=== PATIENT | female | born 1975 | race Caucasian/White ===

== ENCOUNTER 2017-11-15 13:53 | Emergency (ER) | payer BC ==
[~2017-11-15] VITALS: Ht 175.3 cm; Wt 79.8 kg
[~2017-11-15 13:53] MED LIST: ADDERALL 30 MG30 MG PO; ADDERALL XR 3030 MG PO; BENTYL10 MG PO; CIPRO500 MG PO; FLAGYL250 MG PO; NAPROXEN500 M1 PO; PANTOPRAZOLE SO40 MG PO; PHENERGAN SUPP25 MG RC; ZOFRAN ODT4 MG PO
[2017-11-15] MEDS ORDERED: MORPHINE SULFATE 4 MG/ML SYR IV STA (13:56)
[2017-11-15] MEDS ORDERED: SODIUM CHLORIDE 0.9% 1000ML 1,000 ML IV STA (13:56)
--- OUTSIDE RECORDS SUMMARY | 2017-11-15 13:57 | XMS REPORT ---
Author Author [facility] Address Unknown Phone Unavailable Care Team Providers [employer] Name Role Phone TATYANA RAM Unavailable Unavailable SADI MUSTAFA Unavailable Unavailable Problems This patient has no known problems. Allergies, Adverse Reactions, Alerts This patient has no known allergies or adverse reactions. Medications This patient has no known medications. Results Test Description Test Time Test Comments Text Results Atomic Results Result Comments CHEST SINGLE (PORTABLE) [place] [address] Patient Name: EUN SINGH MR #: [id number] : 1975 Age/Sex: 41/F Req #: [id number] [facility] Physician: TATYANA RAM MD Ordered by: OTIS VARGAS, SVETLANA VARGAS Report #: [id number] Location: [facility] Room/Bed: [place] [address] Procedure: [id number] DX/CHEST SINGLE (PORTABLE) Exam Date: Exam Time: REPORT STATUS: Signed PROCEDURE: CHEST SINGLE (PORTABLE) COMPARISON: None. INDICATIONS: DIVERTICULITIS/GASTRITIS FINDINGS: LUNGS: No consolidations or edema. PLEURA: No effusions or pneumothorax. HEART T MEDIASTINUM: The heart is within normal size-limits. BONES T SOFT TISSUES: No acute findings. CONCLUSION: No acute thoracic abnormality. Dictated by: Rosenda Glass M.D. on 09/24/2017 at 12:02 Electronically approved by: Rosenda Glass M.D. on 09/24/2017 at 12:02 Dictated By: ROSENDA GLASS MD 1202 Transcribed By: VENTURA on 09/24/17 1202 COPY TO : SVETLANA BERG CT ABDOMEN/PELVIS W [place] [address] Patient Name: EUN SINGH MR #: [id number] : 1975 Age/Sex: 41/F Req #: [id number] Adm Physician: TATYANA RAM MD Ordered by: SVETLANA BERG MD, MD Report #: [id number] Location: [facility] Room/Bed: [place] [address] Procedure: [id number] CT/CT ABDOMEN/PELVIS W Exam Date: 09/24/17 Exam Time: 1230 REPORT STATUS: Signed PROCEDURE: CT ABDOMEN AND PELVIS WITH CONTRAST TECHNIQUE: The abdomen and pelvis were scanned utilizing a multidetector helical scanner from the diaphragm to the lesser trochanter after the IV administration of 100 cc of Isovue 370 and the oral administration of water. Coronal and sagittal multiplanar reformations were obtained. COMPARISON: None. INDICATIONS: GASTRITIS FLARE UP, FEVER FINDINGS: LOWER THORAX: Subsegmental atelectasis in the left lower lobe. Pectus excavatum. No pleural or pericardial effusion.. HEPATOBILIARY: Trace intrahepatic biliary ductal dilatation status post cholecystectomy. No focal hepatic lesion. SPLEEN: No splenomegaly. Small splenule adjacent to the lower pole. PANCREAS: No focal masses or ductal dilatation. ADRENALS: No adrenal nodules. KIDNEYS/URETERS: No hydronephrosis, stones, or solid mass lesions. PELVIC ORGANS/BLADDER: The urinary bladder is unremarkable. The uterus is anteflexed and appears normal. No adnexal mass. PERITONEUM / RETROPERITONEUM: Trace free pelvic fluid, average internal attenuation 5-10 Hounsfield units. No pneumoperitoneum. LYMPH NODES: No pelvic sidewall, retroperitoneal, or mesenteric lymphadenopathy. VESSELS: The abdominal aorta, major branch vessels, and iliac arterial systems are patent, without aneurysmal dilatation. Hepatic arterial anatomy appears conventional. Portal vein, splenic vein, and central superior mesenteric vein are patent. GI TRACT: The large bowel shows no evidence of distention or wall thickening. Gas and fecal material are noted throughout. The appendix has likely been removed with metallic clips noted along the cecum. There is no small bowel dilatation to suggest obstruction. Opacification of a loop of small bowel in the right lower quadrant is likely related to antacid or other metallic salt containing medication ingestion. BONES AND SOFT TISSUES: No focal soft tissue abnormalities. No osseous destructive lesions. Bone island in the left femoral head. IMPRESSION: No acute intra- abdominal or pelvic CT abnormalities. Trace free pelvic fluid is likely physiologic in a female patient of this age. Dictated by: Rosenda Glass M.D. on 09/24/2017 at 13:23 Electronically approved by: Rosenda Glass M.D. on 09/24/2017 at 13:23 Dictated By: ROSENDA GLASS MD 1323 Transcribed By: VENTRUA on 09/24/17 1323 COPY TO: SVETLANA BERG ANKLE 3+ VIEWS LEFT [place] [address] Patient Name: EUN SINGH MR #: [id number] : 1975 Age/Sex: 41/F Req #: [id number] Adm Physician: Ordered by: SADI MUSTAFA MD Report #: [id number] Location: ER Room/Bed: Procedure: [id number] DX/ANKLE 3+ VIEWS LEFT Exam Date: 08/09/17 Exam Time: 1235 REPORT STATUS: Signed Exam: Left ankle 3 views History: Ankle pain Comparison: None. Findings: No fracture or malalignment. Joint spaces preserved. Joint effusion and soft tissue swelling. Impression: Ankle joint effusion and swelling. No fracture. Signed by: Dr. Aleisha Anaya M.D. on 08/09/2017 1:02 PM Dictated By: ALEISHA ANAYA MD 1302 Transcribed By: BRAYAN on 08/09/17 1302 COPY TO: SADI MUSTAFA MD
[2017-11-15] MEDS ORDERED: LIDOCAINE VISC 2% SOLN 15 ML UDC PO ONE (14:00)
[2017-11-15] MEDS ORDERED: BELLADONNA ALK/PHENOBARBITAL 5 ML UDC PO ONE (14:00)
[2017-11-15] MEDS ORDERED: DIATRIZOATE MEGL/DIATRIZOA SOD 30 ML BTL PO ONE (14:09)
[2017-11-15] MEDS ORDERED: ONDANSETRON HCL INJ 2 MG/ML VIAL IV ONE ×2 (14:30→17:00)
[2017-11-15] MEDS ORDERED: MAGNESIUM/ALUMINUM/SIMETHICONE 30 ML UDC PO ONE (14:30)
[2017-11-15] MEDS ORDERED: MORPHINE SULFATE 2 MG/ML SYR ONE (14:44)
[2017-11-15 14:55] LABS: BASOPHILS % 0.1 % (0.0-1.0); HEMATOCRIT 43.1 % (34.2-44.1); HEMOGLOBIN 15.1 g/dL (12.0-16.0); LYMPHOCYTES # (AUTO) 0.3 (1.0-3.2); LYMPHOCYTES % 1.7 % (18.0-39.1); MEAN CORPUSCULAR HEMOGLOBIN 33.6 pg (28-32); MONOCYTES # (AUTO) 0.3 (0.2-0.8); MONOCYTES % 1.9 % (4.4-11.3); NEUTROPHILS # (AUTO) 14.8 (2.1-6.9); NEUTROPHILS % 95.8 % (38.7-80.0); PLATELET COUNT 286 x10e3/uL (140-360); RED BLOOD COUNT 4.49 x10e6/uL (3.6-5.1); RED CELL DISTRIBUTION WIDTH 12.2 % (11.7-14.4)
[2017-11-15 14:56] LABS: BILIRUBIN,URINE NEGATIVE (NEGATIVE); CLARITY,URINE HAZY (CLEAR); COLOR,URINE YELLOW (YELLOW); KETONES,URINE 3+ (NEGATIVE); LEUKOCYTE ESTERASE ,URINE NEGATIVE (NEGATIVE); NITRITE,URINE NEGATIVE (NEGATIVE); PROTEIN,URINE DIPSTICK NEGATIVE (NEGATIVE); URINE UROBILINOGEN 0.2 mg/dL (0.2 - 1)
[2017-11-15 15:11] LABS: PREGNANCY TEST, URINE NEGATIVE (NEGATIVE)
[2017-11-15 15:15] LABS: ALANINE AMINOTRANSFERASE 18 IU/L (0-55); ALBUMIN 4.3 g/dL (3.5-5.0); ALBUMIN/GLOBULIN RATIO 1.3 (0.8-2.0); ALKALINE PHOSPHATASE 72 IU/L (40-150); AMYLASE 42 U/L (25-125); ANION GAP 14.3 mmol/L (8-16); BLOOD UREA NITROGEN 18 mg/dL (7-26); BUN/CREATININE RATIO 23 (6-25); CALCIUM 9.1 mg/dL (8.4-10.2); CARBON DIOXIDE 22 mmol/L (22-29); CHLORIDE 107 mmol/L (98-107); CREATININE, SERUM 0.79 mg/dL (0.57-1.11); EPITHELIAL CELLS,URINE MODERATE /LPF; EST GLOMERULAR FILTRATION RATE > 60 ML/MIN (60-); GLUCOSE 171 mg/dL (74-118); LIPASE 15 U/L (8-78); POTASSIUM 4.3 mmol/L (3.5-5.1); SODIUM 139 mmol/L (136-145); WBC,URINE (MAN) 0-5 /HPF (0-5)
[2017-11-15 15:25] LABS: TROPONIN I < 0.001 ng/mL (0-0.300)
[2017-11-15] MEDS ORDERED: SODIUM CHLORIDE 0.9% 50ML 50 ML ONE (15:59)
[2017-11-15] MEDS ORDERED: IOPAMIDOL 370 MG/ML 200 ML INFUS..BTL INJ ONE (15:59)
[2017-11-15 16:15] LABS: CREATINE KINASE 80 IU/L (29-168)
[2017-11-15] MEDS ORDERED: HYDROMORPHONE 2MG/ML INJ IV ONE (17:00)
--- NOTE | 2017-11-15 17:21 | Diagnostic Imaging Report ---
EXAM: CT Abdomen and Pelvis WITH contrast INDICATION: Abdominal pain COMPARISON: None. TECHNIQUE: Abdomen and pelvis were scanned utilizing a multidetector helical scanner from the lung base to the pubic symphysis after administration of contrast. Coronal and sagittal reformations were obtained. Protocol: General survey IV CONTRAST: 100 mL of Isovue 370 ORAL CONTRAST: Gastroview COMPLICATIONS: None RADIATION DOSE: Total Exam DLP: 431.5 mGy*cm. CTDIvol has been reviewed. It is below the limits set by the Radiation Protocol Committee (RPC). FINDINGS: LINES: None. Lower thorax: No parenchymal abnormality. No pneumothorax. No pleural effusion. Liver: No focal mass. No hepatomegaly. Normal parenchyma. The hepatic and portal veins are patent. Gallbladder: Cholecystectomy. Biliary tree: No intrahepatic duct dilation. No extrahepatic duct dilation. Spleen: No splenomegaly. No focal mass. Pancreas: Normal parenchymal enhancement. No focal mass. Normal pancreatic duct. No peripancreatic inflammatory changes. Kidneys: No obstructing calculi. No hydronephrosis. No solid enhancing mass. No cysts. No perinephric soft tissue inflammatory changes. Adrenal glands: No adrenal nodules.. Bladder: Normal urinary bladder. Pelvic organs: Normal uterus and ovaries. GI: No bowel wall thickening. No air-fluid levels. The stomach and small bowel are normal. The colon is normal. Appendectomy. A moderate amount of retained feces limits intraluminal evaluation of the colon. Peritoneum/retroperitoneum: No pneumoperitoneum. No ascites. No drainable fluid collection. Lymph nodes: No lymphadenopathy. . Vessels: The abdominal aorta and iliac vessels are patent. The celiac, superior mesenteric, and inferior mesenteric arteries are patent. Single bilateral renal arteries are patent. . Bones: No focal abnormality. . Soft tissues: No focal abnormality. IMPRESSION: No acute abnormality of the abdomen and pelvis. Signed by: Dr. Scooter Pendleton M.D. on 11/15/2017 5:17 PM
[2017-11-15 17:41] LABS: LYMPHOCYTES % (MANUAL) 5 % (19-48); MONOCYTES % (MANUAL) 3 % (3.4-9.0); NEUTROPHILS % (MANUAL) 92 % (40-74)
[2017-11-15 17:42] LABS: PLATELET ESTIMATE ADEQUATE; PLATELET MORPHOLOGY COMMENT NORMAL; RBC MORPHOLOGY COMMENT NORMAL
[2017-11-15 17:52] VITALS: BP 156/89
== END 2017-11-15 18:40 | disposition home or self-care (01) ==
LOC: ER 13:53
DX: R10.13 Epigastric pain (principal); K29.00 Acute gastritis without bleeding
CPT/HCPCS: 36415; 74177; 80053; 81001; 81025; 82150; 82550; 82553; 83690; 84484; 84702; 85025; 87086; 93005; 99284; J1170; J2270; J2405; J7030; Q9967

== ENCOUNTER 2019-01-14 12:23 | Emergency (ER) | payer BC ==
[~2019-01-14] VITALS: Ht 175.3 cm; Wt 79.8 kg
--- OUTSIDE RECORDS SUMMARY | 2019-01-14 12:27 | XMS REPORT | Continuity of Care Document ---
Author Author [facility] Interface Address Unknown Phone Unavailable Problems Problem Status Onset Date Classification Date Reported Comments Source Abdominal pain Active Problem 11/16/2017 [facility] Colitis Active Problem 11/16/2017 [facility] Gastritis Active Problem 11/16/2017 [facility] Left ankle sprain Active Problem 11/16/2017 [facility] Vomiting Active Problem 11/16/2017 [facility] Medications Medication Details Route Status Patient Instructions Ordering Provider Order Date Source Pantoprazole Sodium (Protonix) 40 Mg Tablet. Twice A Day Active [place] 03/19/2017 [facility] Ciprofloxacin Hcl (Cipro) 500 Mg Tablet, 500 Mg Oral Daily Active 03/19/2017 [facility] Dicyclomine Hcl (Bentyl) 10 Mg Capsule, 10 Mg Oral Three Times A Day Active [place] 03/19/2017 [facility] Metronidazole (Flagyl) 250 Mg Tablet, 500 Mg Oral Every 8 Hours Active 03/19/2017 [facility] Promethazine Hcl (Phenergan Supp*) 25 Mg Supp, 1 Supp Rectal Every 8 Hours as needed for Vomiting Active 03/19/2017 [facility] Amphet Asp/Amphet/D-Amphet (Adderall Xr 30 Mg Capsule) 30 Mg Cap.er.24h, 30 Mg Oral Twice A Day Active 03/16/2017 [facility] Naproxen 500 Mg Tablet., 500 Mg Oral Twice A Day Active 03/16/2017 [facility] Amphet Asp/Amphet/D-Amphet (Adderall 30 Mg Tablet) 30 Mg Tablet Daily Active [facility] Ondansetron (Zofran Odt) 4 Mg Tab.rapdis Every 6 Hours as needed for Vomiting Active [facility] Allergies, Adverse Reactions, Alerts Substance Category Reaction Severity Reaction type Status Date Reported Comments Source STRAWBERRIES RED SPOTS Mild Allergy to Substance Active 11/16/2013 [facility] Immunizations Immunization Date Given Site Status Last Updated Comments Source Results Order Name Results Value Reference Range Date Interpretation Comments Source Automated blood basophil count (count/volume) Automated blood basophil count (count/volume) 0.0 0.0 - 0.1 11/15/2017 [facility] Automated blood basophil count as percentage of total leukocytes Automated blood basophil count as percentage of total leukocytes 0.1 0.0 - 1.0 11/15/2017 [facility] Automated blood eosinophil count Automated blood eosinophil count 0.0 0.0 - 0.4 11/15/2017 [facility] Automated blood eosinophil count as percentage of total leukocytes Automated blood eosinophil count as percentage of total leukocytes 0.0 0.0 - 6.0 11/15/2017 [facility] Automated blood hematocrit (volume fraction) Automated blood hematocrit (volume fraction) 43.1 34.2 - 44.1 11/15/2017 [facility] Automated blood lymphocyte count as percentage ot total leukocytes Automated blood lymphocyte count as percentage ot total leukocytes 1.7 18.0 - 39.1 11/15/2017 [facility] Automated blood monocyte count as percentage of total leukocytes Automated blood monocyte count as percentage of total leukocytes 1.9 4.4 - 11.3 11/15/2017 [facility] Automated blood neutrophil count Automated blood neutrophil count 14.8 2.1 - 6.9 11/15/2017 [facility] Automated blood platelet count (count/volume) Automated blood platelet count (count/volume) 286 140 - 360 11/15/2017 [facility] Automated blood segmented neutrophil count as percentage of total leukocytes Automated blood segmented neutrophil count as percentage of total leukocytes 95.8 38.7 - 80.0 11/15/2017 [facility] Automated erythrocyte mean corpuscular hemoglobin (mass per erythrocyte) Automated erythrocyte mean corpuscular hemoglobin (mass per erythrocyte) 33.6 28 - 32 11/15/2017 [facility] Automated erythrocyte mean corpuscular hemoglobin concentration measurement (mass/volume) Automated erythrocyte mean corpuscular hemoglobin concentration measurement (mass/volume) 35.0 31 - 35 11/15/2017 [facility] Automated erythrocyte mean corpuscular volume Automated erythrocyte mean corpuscular volume 96.0 81 - 99 11/15/2017 [facility] Automated urine sediment leukocyte count by microscopy (number/high power field) Automated urine sediment leukocyte count by microscopy (number/high power field) null 0 - 5 11/15/2017 [facility] Bacteria detection in urine sediment by light microscopy Bacteria detection in urine sediment by light microscopy NONE NONE 11/15/2017 [facility] Blood erythrocytes automated count (number/volume) Blood erythrocytes automated count (number/volume) 4.49 3.6 - 5.1 11/15/2017 [facility] Blood hemoglobin measurement (moles/volume) Blood hemoglobin measurement (moles/volume) 15.1 12.0 - 16.0 11/15/2017 [facility] Blood leukocytes automated count (number/volume) Blood leukocytes automated count (number/volume) 15.49 4.8 - 10.8 11/15/2017 [facility] Blood lymphocytes count (number/volume) Blood lymphocytes count (number/volume) 0.3 1.0 - 3.2 11/15/2017 [facility] Blood monocytes automated count (number/volume) Blood monocytes automated count (number/volume) 0.3 0.2 - 0.8 11/15/2017 [facility] Blood platelets count by estimate (number/volume) Blood platelets count by estimate (number/volume) ADEQUATE 11/15/2017 [facility] Epithelial cells detection in urine sediment by light microscopy Epithelial cells detection in urine sediment by light microscopy MODERATE NONE 11/15/2017 [facility] Erythrocytes detection in urine sediment by light microscopy Erythrocytes detection in urine sediment by light microscopy NONE 0 - 5 11/15/2017 [facility] Estimated glomerular filtration rate (GFR) determination Estimated glomerular filtration rate (GFR) determination null 60 11/15/2017 [facility] Glucose measurement Glucose measurement 171 74 - 118 11/15/2017 [facility] Manual blood lymphocytes/100 leukocytes Manual blood lymphocytes/100 leukocytes 5 19 - 48 11/15/2017 [facility] Manual blood monocytes/100 leukocytes Manual blood monocytes/100 leukocytes 3 3.4 - 9.0 11/15/2017 [facility] Manual blood neutrophils/100 leukocytes Manual blood neutrophils/100 leukocytes 92 40 - 74 11/15/2017 [facility] Plasma globulin measurement (mass/volume) Plasma globulin measurement (mass/volume) 3.2 2.3 - 3.5 11/15/2017 [facility] Platelet morphology Platelet morphology NORMAL 11/15/2017 [facility] RBC morphology RBC morphology NORMAL 11/15/2017 [facility] Serum or plasma alanine aminotransferase measurement (enzymatic activity/volume) Serum or plasma alanine aminotransferase measurement (enzymatic activity/volume) 18 0 - 55 11/15/2017 [facility] Serum or plasma albumin measurement (mass/volume) Serum or plasma albumin measurement (mass/volume) 4.3 3.5 - 5.0 11/15/2017 [facility] Serum or plasma albumin/globulin mass ratio Serum or plasma albumin/globulin mass ratio 1.3 0.8 - 2.0 11/15/2017 [facility] Serum or plasma alkaline phosphatase measurement (enzymatic activity/volume) Serum or plasma alkaline phosphatase measurement (enzymatic activity/volume) 72 40 - 150 11/15/2017 [facility] Serum or plasma amylase measurement (enzymatic activity/volume) Serum or plasma amylase measurement (enzymatic activity/volume) 42 25 - 125 11/15/2017 [facility] Serum or plasma anion gap Serum or plasma anion gap 14.3 8 - 16 11/15/2017 [facility] Serum or plasma calcium measurement (mass/volume) Serum or plasma calcium measurement (mass/volume) 9.1 8.4 - 10.2 11/15/2017 [facility] Serum or plasma carbon dioxide, total measurement (moles/volume) Serum or plasma carbon dioxide, total measurement (moles/volume) 22 22 - 29 11/15/2017 [facility] Serum or plasma chloride measurement (moles/volume) Serum or plasma chloride measurement (moles/volume) 107 98 - 107 11/15/2017 [facility] Serum or plasma choriogonadotropin ( test) detection Serum or plasma choriogonadotropin ( test) detection NEGATIVE NEGATIVE 11/15/2017 [facility] Serum or plasma creatine kinase MB measurement (mass/volume) Serum or plasma creatine kinase MB measurement (mass/volume) 2.20 0.00 - 5.00 11/15/2017 [facility] Serum or plasma creatine kinase measurement (enzymatic activity/volume) Serum or plasma creatine kinase measurement (enzymatic activity/volume) 80 29 - 168 11/15/2017 [facility] Serum or plasma creatinine measurement (mass/volume) Serum or plasma creatinine measurement (mass/volume) 0.79 0.57 - 1.11 11/15/2017 [facility] Serum or plasma lipase measurement (enzymatic activity/volume) Serum or plasma lipase measurement (enzymatic activity/volume) 15 8 - 78 11/15/2017 [facility] Serum or plasma potassium measurement (moles/volume) Serum or plasma potassium measurement (moles/volume) 4.3 3.5 - 5.1 11/15/2017 [facility] Serum or plasma protein measurement (mass/volume) Serum or plasma protein measurement (mass/volume) 7.5 6.5 - 8.1 11/15/2017 [facility] Serum or plasma sodium measurement (moles/volume) Serum or plasma sodium measurement (moles/volume) 139 136 - 145 11/15/2017 [facility] Serum or plasma total bilirubin measurement (mass/volume) Serum or plasma total bilirubin measurement (mass/volume) 1.0 0.2 - 1.2 11/15/2017 [facility] Serum or plasma troponin i.cardiac measurement by detection limit <=0.01 NG/ml (mass/volume) Serum or plasma troponin i.cardiac measurement by detection limit <=0.01 NG/ml (mass/volume) null 0 - 0.300 11/15/2017 [facility] Serum or plasma urea nitrogen measurement (mass/volume) Serum or plasma urea nitrogen measurement (mass/volume) 18 7 - 26 11/15/2017 [facility] Serum or plasma urea nitrogen/creatinine mass ratio Serum or plasma urea nitrogen/creatinine mass ratio 23 6 - 25 11/15/2017 [facility] Specific gravity of Urine by Test strip Specific gravity of Urine by Test strip 1.025 1.010 - 1.025 11/15/2017 [facility] Urine clarity Urine clarity HAZY CLEAR 11/15/2017 [facility] Urine color determination Urine color determination YELLOW YELLOW 11/15/2017 [facility] Urine erythrocytes detection Urine erythrocytes detection 3+ NEGATIVE 11/15/2017 [facility] Urine glucose detection Urine glucose detection NEGATIVE NEGATIVE 11/15/2017 [facility] Urine human chorionic gonadotropin (hCG) detection Urine human chorionic gonadotropin (hCG) detection NEGATIVE NEGATIVE 11/15/2017 [facility] Urine ketones detection by automated test strip Urine ketones detection by automated test strip 3+ NEGATIVE 11/15/2017 [facility] Urine leukocyte esterase detection by dipstick Urine leukocyte esterase detection by dipstick NEGATIVE NEGATIVE 11/15/2017 [facility] Urine nitrite detection Urine nitrite detection NEGATIVE NEGATIVE 11/15/2017 [facility] Urine pH measurement by automated test strip Urine pH measurement by automated test strip 6 5 - 7 11/15/2017 [facility] Urine protein measurement by test strip (mass/volume) Urine protein measurement by test strip (mass/volume) NEGATIVE NEGATIVE 11/15/2017 [facility] Urine total bilirubin measurement (mass/volume) Urine total bilirubin measurement (mass/volume) NEGATIVE NEGATIVE 11/15/2017 [facility] Urine urobilinogen measurement by test strip (mass/volume) Urine urobilinogen measurement by test strip (mass/volume) 0.2 0.2 - 1 11/15/2017 [facility] Red Cell Distribution Width 12.2 11.7 - 14.4 11/15/2017 [facility] IM GRANULOCYTES % 0.5 0.0 - 1.0 11/15/2017 [facility] Absolute Immature Granulocyte (auto 0.07 0 - 0.1 11/15/2017 [facility] Differential Total Cells Counted 100 11/15/2017 [facility] Aspartate Amino Transf (AST/SGOT) 16 5 - 34 11/15/2017 [facility] Activated partial thromboplastin time (aPTT) in platelet poor plasma bycoagulation assay Activated partial thromboplastin time (aPTT) in platelet poor plasma bycoagulation assay 27.0 23.8 - 35.5 09/24/2017 [facility] INR in Platelet poor plasma by Coagulation assay INR in Platelet poor plasma by Coagulation assay 0.90 09/24/2017 [facility] Prothrombin time (PT) in platelet poor plasma by coagulation assay Prothrombin time (PT) in platelet poor plasma by coagulation assay 10.2 11.9 - 14.5 09/24/2017 [facility] Serum or plasma acetaminophen measurement by screening method (mass/volume) Serum or plasma acetaminophen measurement by screening method (mass/volume) null 10 - 30 09/24/2017 [facility] Serum or plasma magnesium measurement (mass/volume) Serum or plasma magnesium measurement (mass/volume) 2.1 1.3 - 2.1 09/24/2017 [facility] Serum or plasma salicylates measurement (mass/volume) Serum or plasma salicylates measurement (mass/volume) null 0 - 30 09/24/2017 [facility] Serum or plasma thyrotropin measurement by detection limit <=0.005 miu/l (units/volume) Serum or plasma thyrotropin measurement by detection limit <=0.005 miu/l (units/volume) 0.860 0.350 - 4.940 09/24/2017 [facility] B-Type Natriuretic Peptide 88.7 0 - 100 09/24/2017 [facility] Amorphous sediment detection in urine sediment by light microscopy Amorphous sediment detection in urine sediment by light microscopy MODERATE FEW 09/24/2017 [facility] Clostridium difficile A and B toxin assay Clostridium difficile A and B toxin assay NEGATIVE NEGATIVE 03/17/2017 [facility] Stool calprotectin measurement (mass/mass) Stool calprotectin measurement (mass/mass) null 0 - 120 03/17/2017 [facility] Stool lactoferrin detection Stool lactoferrin detection NEGATIVE NEGATIVE 03/17/2017 [facility] Bacterial blood culture Bacterial blood culture Organism: STAPHYLOCOCCUS SP COAG NEG 03/16/2017 [facility] Blood culture Blood culture Growth detected. Culture workup ordered. 03/16/2017 [facility] Vital Signs Vital Sign Value Date Comments Source Encounters Location Location Details Encounter Type Encounter Number Reason For Visit Attending Provider ADM Date DC Date Status Source Discharged Inpatient [id number] TATYANA RAM MD 03/16/2017 03/19/2017 [facility] Departed Emergency Room [id number] SADI MUSTAFA MD 08/09/2017 08/09/2017 [facility] Discharged Inpatient [id number] TATYANA RAM MD 09/28/2017 09/28/2017 [facility] Departed Emergency Room [id number] SADI MUSTAFA MD 11/15/2017 11/15/2017 [facility] Procedures Procedure Code Date Perfomer Comments Source Computed tomography of abdomen and pelvis with contrast [id number] 11/15/2017 [facility] DILATION OF STOMACH, PYLORUS, ENDO [id number] 09/27/2017 [facility] EXCISION OF STOMACH, PYLORUS, ENDO, DIAGN [id number] 09/27/2017 [facility] EXCISION OF STOMACH, ENDO, DIAGN [id number] 09/27/2017 [facility] Computed tomography of abdomen and pelvis with contrast [id number] 09/24/2017 [facility] APPLICATION LOWER LEG SPLINT [id number] 08/09/2017 [place] [facility] EXCISION OF STOMACH, ENDO, DIAGN [id number] 03/17/2017 [facility] EXCISION OF RECTUM, ENDO, DIAGN [id number] 03/17/2017 [facility] EXCISION OF DESCENDING COLON, ENDO, DIAGN [id number] 03/17/2017 [facility]
[2019-01-14] MEDS ORDERED: ONDANSETRON HCL INJ 2MG/ML 2ML 2 MG/ML VIAL IV STA ×2 (12:58→15:52)
[2019-01-14] MEDS ORDERED: SODIUM CHLORIDE 0.9% 1000ML 1,000 ML IV STA (12:58)
[2019-01-14] MEDS ORDERED: DIPHENHYDRAMINE HCL INJ 50 MG/ML VIAL IV ONE ×2 (13:00→17:00)
[2019-01-14] MEDS ORDERED: METOCLOPRAMIDE HCL 10 MG/2ML VIAL IV ONE ×2 (13:00→17:00)
[2019-01-14] MEDS ORDERED: PANTOPRAZOLE 40 MG 10ML VIAL IV NR (13:15)
[2019-01-14 13:21] LABS: BASOPHILS % 0.3 % (0.0-1.0); HEMATOCRIT 44.7 % (34.2-44.1); HEMOGLOBIN 15.5 g/dL (12.0-16.0); LYMPHOCYTES # (AUTO) 0.8 (1.0-3.2); LYMPHOCYTES % 6.9 % (18.0-39.1); MEAN CORPUSCULAR HEMOGLOBIN 33.3 pg (28-32); MEAN CORPUSCULAR HGB CONC 34.7 g/dL (31-35); MEAN CORPUSCULAR VOLUME 96.1 fL (81-99); MONOCYTES # (AUTO) 0.2 (0.2-0.8); MONOCYTES % 1.9 % (4.4-11.3); NEUTROPHILS # (AUTO) 10.7 (2.1-6.9); NEUTROPHILS % 90.5 % (38.7-80.0); PLATELET COUNT 317 x10e3/uL (140-360); RED BLOOD COUNT 4.65 x10e6/uL (3.6-5.1); RED CELL DISTRIBUTION WIDTH 12.9 % (11.7-14.4)
[2019-01-14 13:34] LABS: INR 0.9; PARTIAL THROMBOPLASTIN TIME 24.1 seconds (23.8-35.5); PROTHROMBIN TIME 12.6 seconds (11.9-14.5)
[2019-01-14 13:44] LABS: ALANINE AMINOTRANSFERASE 10 IU/L (0-55); ALBUMIN 4.1 g/dL (3.5-5.0); ALBUMIN/GLOBULIN RATIO 1.1 (0.8-2.0); ALKALINE PHOSPHATASE 80 IU/L (40-150); AMYLASE 55 U/L (25-125); BLOOD UREA NITROGEN 14 mg/dL (7-26); BUN/CREATININE RATIO 18 (6-25); CALCIUM 9.7 mg/dL (8.4-10.2); CARBON DIOXIDE 21 mmol/L (22-29); CHLORIDE 107 mmol/L (98-107); CREATINE KINASE 86 IU/L (29-168); CREATININE, SERUM 0.79 mg/dL (0.57-1.11); EST GLOMERULAR FILTRATION RATE > 60 ML/MIN (60-); GLUCOSE 156 mg/dL (74-118); LIPASE 14 U/L (8-78); MAGNESIUM 2.2 MG/DL (1.3-2.1); SODIUM 137 mmol/L (136-145)
[2019-01-14 14:03] LABS: AMPHETAMINES SCREEN,URINE POSITIVE (NEGATIVE); BENZODIAZEPINES SCREEN,URINE NEGATIVE (NEGATIVE); PHENCYCLIDINE SCREEN,URINE NEGATIVE (NEGATIVE)
[2019-01-14 14:04] LABS: BILIRUBIN,URINE NEGATIVE (NEGATIVE); CLARITY,URINE SL CLOUDY (CLEAR); COLOR,URINE YELLOW (YELLOW); KETONES,URINE 1+ (NEGATIVE); LEUKOCYTE ESTERASE ,URINE NEGATIVE (NEGATIVE); NITRITE,URINE NEGATIVE (NEGATIVE); PROTEIN,URINE DIPSTICK TRACE (NEGATIVE); URINE UROBILINOGEN 0.2 mg/dL (0.2 - 1)
[2019-01-14 14:05] LABS: ACETAMINOPHEN < 3 ug/mL (10-30)
[2019-01-14 14:09] LABS: AMORPHOUS SEDIMENT,URINE MODERATE (FEW); BACTERIA,URINE MODERATE /HPF; EPITHELIAL CELLS,URINE MANY /LPF
--- NOTE | 2019-01-14 15:24 | Diagnostic Imaging Report ---
Examination: Single AP view of the chest. COMPARISON: None. INDICATION: Abdominal pain DISCUSSION: Lines/tubes: None. Lungs: The lungs are well inflated and clear. There is no evidence of pneumonia or pulmonary edema. Pleura: There is no pleural effusion or pneumothorax. Heart and mediastinum: The heart and the mediastinum are unremarkable. Bones and soft tissues: No acute bony abnormalities. IMPRESSION: 1. No acute cardiopulmonary abnormalities. Signed by: Dr. Marty Aguirre M.D. on 01/14/2019 3:21 PM
[2019-01-14] MEDS ORDERED: SODIUM CHLORIDE 0.9% 1000ML 1,000 ML IV SCH (16:00)
--- NOTE | 2019-01-14 16:58 | Diagnostic Imaging Report ---
EXAMINATION: CT of the abdomen and pelvis with contrast. TECHNIQUE: Spiral CT images of the abdomen and pelvis were performed from the lung bases to the lesser trochanters after the intravenous administration of 100 cc Isovue-370. Coronal and sagittal reformatted images were obtained. COMPARISON: 11/15/2017 CLINICAL HISTORY:Nausea, vomiting, abdominal pain DISCUSSION: ABDOMEN/PELVIS: LOWER THORAX:Subsegmental atelectasis or focal scar in the left lung base. HEPATOBILIARY: No focal hepatic lesions. No intra-or extrahepatic biliary ductal dilation. The gallbladder is absent. Metallic clips in the gallbladder fossa. SPLEEN: No splenomegaly. PANCREAS: No focal masses or ductal dilatation. ADRENALS: No adrenal nodules. KIDNEYS/URETERS: No hydronephrosis, stones, or solid mass lesions. PELVIC ORGANS/BLADDER: Urinary bladder is unremarkable. Uterus is anteflexed and appears normal. No adnexal mass. Right ovarian cysts versus follicles. PERITONEUM/RETROPERITONEUM: No free air or fluid. LYMPH NODES: No intra-abdominal, retroperitoneal, pelvic or inguinal lymphadenopathy. VESSELS: Abdominal aorta, major branch vessels, and iliac arterial systems are well-visualized and patent. 2 left renal arteries and a single right renal artery. Portal vein, splenic vein, and central superior mesenteric vein are patent. GI TRACT: The large bowel shows no distention or wall thickening. The descending and sigmoid colon are collapsed and poorly evaluated. The appendix is not identified and has presumably been removed. The stomach is collapsed with prominent rugal folds. No small bowel dilatation to suggest obstruction. BONES AND SOFT TISSUE: No osseous destructive lesions. No focal soft tissue abnormalities. No soft tissue abnormalities. IMPRESSION: No acute intra-abdominal or pelvic CT abnormalities. Signed by: Dr. Marty Aguirre M.D. on 01/14/2019 4:55 PM
[2019-01-14] MEDS ORDERED: IOPAMIDOL 370 MG/ML 200 ML INFUS..BTL INJ ONE (21:59)
[2019-01-14] MEDS ORDERED: SODIUM CHLORIDE 0.9% 50ML 50 ML ONE (21:59)
[2019-01-19] MEDS ORDERED: SUCRALFATE1 GM PO (09:17)
== END 2019-01-14 18:33 | disposition home or self-care (01) ==
LOC: ER 12:23
DX: R10.13 Epigastric pain (principal); R11.2 Nausea with vomiting, unspecified; F17.210 Nicotine dependence, cigarettes, uncomplicated; F14.129 Cocaine abuse with intoxication, unspecified; F15.129 Other stimulant abuse with intoxication, unspecified; F12.229 Cannabis dependence with intoxication, unspecified
CPT/HCPCS: 36415; 71045; 74177; 80053; 80307; 80320; 80329; 81001; 81025; 82150; 82550; 82553; 83690; 83735; 84484; 85025; 85610; 85730; 87086; 93005; 99284; C9113; J1200; J2405; J2765; J7030; Q9967

== ENCOUNTER 2019-01-16 17:39 | Observation (INO) | payer BC ==
[~2019-01-16] VITALS: Ht 170.2 cm; Wt 74.8 kg
[2019-01-16] MEDS ORDERED: SODIUM CHLORIDE 0.9% 1000ML 1,000 ML IV STA (17:49)
[2019-01-16] MEDS ORDERED: HALOPERIDOL LACTATE 5 MG/ML VIAL IV NR (18:00)
[2019-01-16] MEDS ORDERED: PANTOPRAZOLE 40 MG 10ML VIAL IV NR (18:00)
[2019-01-16 18:41] LABS: BASOPHILS # (AUTO) 0.1 (0.0-0.1); BASOPHILS % 0.3 % (0.0-1.0); HEMATOCRIT 47.1 % (34.2-44.1); HEMOGLOBIN 16.4 g/dL (12.0-16.0); LYMPHOCYTES # (AUTO) 1.3 (1.0-3.2); LYMPHOCYTES % 6.6 % (18.0-39.1); MEAN CORPUSCULAR HEMOGLOBIN 33.5 pg (28-32); MEAN CORPUSCULAR HGB CONC 34.8 g/dL (31-35); MEAN CORPUSCULAR VOLUME 96.1 fL (81-99); MONOCYTES # (AUTO) 0.9 (0.2-0.8); MONOCYTES % 4.8 % (4.4-11.3); NEUTROPHILS # (AUTO) 16.7 (2.1-6.9); NEUTROPHILS % 87.8 % (38.7-80.0); PLATELET COUNT 312 x10e3/uL (140-360); RED CELL DISTRIBUTION WIDTH 12.5 % (11.7-14.4)
[2019-01-16 18:48] LABS: CLARITY,URINE CLOUDY (CLEAR); COLOR,URINE YELLOW (YELLOW); KETONES,URINE 3+ (NEGATIVE); LEUKOCYTE ESTERASE ,URINE TRACE (NEGATIVE); NITRITE,URINE NEGATIVE (NEGATIVE); PROTEIN,URINE DIPSTICK 2+ (NEGATIVE); URINE UROBILINOGEN 1 mg/dL (0.2 - 1)
[2019-01-16 18:49] LABS: BILIRUBIN,URINE 1+ (NEGATIVE)
[2019-01-16 18:53] LABS: ALANINE AMINOTRANSFERASE 11 IU/L (0-55); ALBUMIN 4.2 g/dL (3.5-5.0); ALBUMIN/GLOBULIN RATIO 1.2 (0.8-2.0); ALKALINE PHOSPHATASE 71 IU/L (40-150); AMYLASE 68 U/L (25-125); ANION GAP 15.3 mmol/L (8-16); BLOOD UREA NITROGEN 18 mg/dL (7-26); BUN/CREATININE RATIO 18 (6-25); CALCIUM 9.4 mg/dL (8.4-10.2); CARBON DIOXIDE 24 mmol/L (22-29); CHLORIDE 103 mmol/L (98-107); CREATININE, SERUM 0.98 mg/dL (0.57-1.11); EST GLOMERULAR FILTRATION RATE > 60 ML/MIN (60-); GLUCOSE 140 mg/dL (74-118); LIPASE 33 U/L (8-78); POTASSIUM 3.3 mmol/L (3.5-5.1); SODIUM 139 mmol/L (136-145)
[2019-01-16 18:54] LABS: BACTERIA,URINE RARE /HPF; CALCIUM OXALATE CRYSTALS,UR MODERATE (FEW); EPITHELIAL CELLS,URINE MANY /LPF; WBC,URINE (MAN) 0-5 /HPF (0-5)
[2019-01-16] MEDS ORDERED: PROMETHAZINE HCL (IM) 25 MG/ML VIAL IV PRN (19:15)
[2019-01-16] MEDS: D5.45%NS/KCL 20MEQ 1,000 ML IV SCH (19:22)
[2019-01-16] MEDS ORDERED: D5.45%NS/KCL 20MEQ 1,000 ML IV ONE (19:23)
[2019-01-16] MEDS ORDERED: HALOPERIDOL LACTATE 5 MG/ML VIAL IM PRN (20:00)
[2019-01-16 20:05] VITALS: BP 189/90
--- NOTE | 2019-01-16 20:05 | NUR ---
Pt received from ER. Pt A&O but appears to be very sleepy. Pt on RA and no tele. All safety measures ensured and pt call coats near.
[2019-01-16 21:00] VITALS: BP 139/90
[2019-01-16] MEDS: MORPHINE SULFATE INJ 4 MG/ML INJ 1ML IV PRN (21:48)
[2019-01-17] VITALS (8 sets, daily range): BP systolic 106–131; BP diastolic 60–83
--- NOTE | 2019-01-17 02:17 | NUR ---
Dr. Radha Garcia rounding; gave orders to change pt diet to clear liquids to see if she tolerates it. Pt states she has no appetite and vomits up anything she eats. Pt has had no episodes of vomiting since admission.
[2019-01-17] MEDS: MORPHINE SULFATE INJ 4 MG/ML INJ 1ML IV PRN ×4 (02:45→19:54)
[2019-01-17 06:32] LABS: BASOPHILS % 0.3 % (0.0-1.0); EOSINOPHILS % 0.1 % (0.0-6.0); HEMATOCRIT 41.3 % (34.2-44.1); HEMOGLOBIN 14.3 g/dL (12.0-16.0); LYMPHOCYTES # (AUTO) 2.2 (1.0-3.2); LYMPHOCYTES % 24.2 % (18.0-39.1); MEAN CORPUSCULAR HEMOGLOBIN 32.9 pg (28-32); MEAN CORPUSCULAR HGB CONC 34.6 g/dL (31-35); MEAN CORPUSCULAR VOLUME 94.9 fL (81-99); MONOCYTES # (AUTO) 0.8 (0.2-0.8); NEUTROPHILS # (AUTO) 5.9 (2.1-6.9); NEUTROPHILS % 66.1 % (38.7-80.0); PLATELET COUNT 248 x10e3/uL (140-360); RED BLOOD COUNT 4.35 x10e6/uL (3.6-5.1); RED CELL DISTRIBUTION WIDTH 12.3 % (11.7-14.4)
[2019-01-17 06:59] LABS: ALANINE AMINOTRANSFERASE 9 IU/L (0-55); ALBUMIN 3.2 g/dL (3.5-5.0); ALBUMIN/GLOBULIN RATIO 1.2 (0.8-2.0); ALKALINE PHOSPHATASE 56 IU/L (40-150); ANION GAP 9.7 mmol/L (8-16); BLOOD UREA NITROGEN 11 mg/dL (7-26); BUN/CREATININE RATIO 16 (6-25); CALCIUM 8.5 mg/dL (8.4-10.2); CARBON DIOXIDE 23 mmol/L (22-29); CHLORIDE 109 mmol/L (98-107); CREATININE, SERUM 0.67 mg/dL (0.57-1.11); EST GLOMERULAR FILTRATION RATE > 60 ML/MIN (60-); GLUCOSE 103 mg/dL (74-118); POTASSIUM 3.7 mmol/L (3.5-5.1); SODIUM 138 mmol/L (136-145)
[2019-01-17] MEDS: PANTOPRAZOLE 40 MG 10ML VIAL IV SCH ×2 (08:45→18:04)
[2019-01-17] MEDS: D5.45%NS/KCL 20MEQ 1,000 ML IV SCH (08:45)
--- NOTE | 2019-01-17 19:00 | NUR ---
received report from day nurse. patient is resting comfortably in bed. bed is in lowest position and call coats is within reach. will continue to monitor patient.
[2019-01-18] VITALS (7 sets, daily range): BP systolic 111–127; BP diastolic 62–88
--- NOTE | 2019-01-18 01:00 | NUR ---
Consulted physician in building rounding on patient. physician has verbally spoken with patient as requested by patient.
[2019-01-18] MEDS: MORPHINE SULFATE INJ 4 MG/ML INJ 1ML IV PRN ×3 (01:20→20:58)
--- NOTE | 2019-01-18 07:05 | NUR ---
Report given to day nurse. patient is resting comfortably in the bed. bed is in lowest position and call coats is within reach.
[2019-01-18] MEDS: PANTOPRAZOLE 40 MG 10ML VIAL IV SCH (09:00)
--- NOTE | 2019-01-18 17:13 | Operative Report ---
DATE OF PROCEDURE: 01/18/2019 SURGEON: Mani Garcia MD PROCEDURE: Esophagogastroduodenoscopy with biopsies. INDICATION FOR EGD: Upper abdominal pain, nausea, and vomiting. MEDICATIONS: The patient was done under MAC, please see anesthesiologist's note. PROCEDURE IN DETAIL: With the patient in left lateral decubitus position, flexible fiberoptic Olympus gastroscope was introduced into the esophagus under direct visualization without any difficulty. There was some patchy erythema noted in distal esophagus. The scope was then advanced with ease into the stomach traversing a small sliding hiatal hernia. The mucosa overlying the antrum and the body revealed some diffuse erythema and moderate edema and biopsies were obtained and sent to stain for H pylori. Pylorus was of normal contour and shape, it was intubated with ease and the scope was advanced all the way to the second portion of the duodenum. Biopsies were obtained from the second portion as well as from the duodenal bulb to rule out sprue. The scope was then withdrawn back into the stomach and retroflexed, mucosa overlying the fundus and cardia appeared to be within normal limits. The scope was then straightened out, it was subsequently withdrawn. The patient tolerated the procedure well. IMPRESSION: 1. Distal esophagitis. 2. Small sliding hiatal hernia. 3. Gastritis, biopsied. The biopsies sent to stain for Helicobacter pylori. PLAN: Follow up histology. Continue PPI therapy. We will advance diet to a GI soft. Mani Garcia MD [facility]/MODL /[id number] cc: Thee Bass MD
[2019-01-18] MEDS: PANTOPRAZOLE SOD 40 MG TABEC PO SCH (17:40)
[2019-01-18] MEDS ORDERED: PROPOFOL IV EMULSION 10 MG/ML 20 ML VIAL ONE (18:18)
--- NOTE | 2019-01-18 18:47 | NUR ---
Received report from previous nurse. Call light within reach.
[2019-01-18] MEDS ORDERED: FENTANYL CITRATE/PF 100MCG/2 ML INJ ONE (19:01)
[2019-01-18] MEDS ORDERED: MIDAZOLAM HCL 2 MG/2 ML VIAL ONE (19:01)
[2019-01-18] MEDS ORDERED: MIDAZOLAM HCL 5MG/ML 2ML VIAL ONE (19:01)
[2019-01-18] MEDS: D5.45%NS/KCL 20MEQ 1,000 ML IV SCH (21:00)
[2019-01-19] VITALS: BP 110/59
[2019-01-19 00:20] VITALS: BP 124/74
[2019-01-19] MEDS: D5.45%NS/KCL 20MEQ 1,000 ML IV SCH ×2 (00:30→08:06)
[2019-01-19 04:00] VITALS: BP_SYST 104; BP_SYST 121; BP_DIAS 65; BP_DIAS 69
--- NOTE | 2019-01-19 07:21 | NUR ---
GAVE REPORT TO ONCOMING NURSE. CALL LIGHT WITHIN REACH. FAMILY AT BEDSIDE
[2019-01-19] MEDS: PANTOPRAZOLE SOD 40 MG TABEC PO SCH (08:06)
[2019-01-19 08:17] VITALS: BP 114/75
[2019-01-19 08:26] VITALS: BP 114/75
[2019-01-19] MEDS ORDERED: SUCRALFATE1 GM PO (09:17)
[2019-01-19 11:00] VITALS: BP 132/75
--- NOTE | 2019-01-20 04:03 | Discharge Summary ---
DISCHARGE DIAGNOSES: 1. Gastritis and distal esophagitis. 2. Hiatal hernia. 3. Nonadherence to PPI therapy. 4. Dehydration, resolved. HOSPITAL COURSE: Ms. Vizcarra is a 43 years old lady, patient of Dr. Flavio Goldberg, who has history of drinking prior gastric ulcer, esophagitis, and pyloric obstruction. She presented to the emergency department with increased abdominal pain. In fact, she had three successive visits and finally was admitted with nausea, vomiting after drinking binge. According to the patient, she had stopped her PPI several weeks prior. A CT of the abdomen and pelvis was negative. Additional evaluation revealed an elevated WBC count, elevated hemoglobin levels, and signs of dehydration. Amylase and lipase were normal. She was admitted to the hospital. She was placed n.p.o. She was treated with IV PPI, IV fluids, and a consultation with her chicken tender, Dr. Mani Lomas was performed. She underwent EGD with findings of gastritis, distal esophagitis, and hiatal hernia. The patient has improved and she is now tolerating a soft diet. She is being discharged home in stable conditions. She was given prescriptions for sucralfate and Protonix and she is to follow up with her primary care physician and GI. MD ZAK Baron/KELSEY /[id number]
== END 2019-01-19 11:34 | disposition home or self-care (01) ==
LOC: ER 17:39 → ERHOLD 19:32 → IMCU 20:05
PROVIDERS: ADMIT Internal Medicine; ATTEND Internal Medicine
DX: K29.70 Gastritis, unspecified, without bleeding (principal); K20.9 Esophagitis, unspecified; F14.10 Cocaine abuse, uncomplicated; F10.10 Alcohol abuse, uncomplicated; E86.0 Dehydration; K44.9 Diaphragmatic hernia without obstruction or gangrene; Z90.49 Acquired absence of other specified parts of digestive tract; Z91.19 Patient's noncompliance with other medical treatment and regimen; Z91.018 Allergy to other foods; Z72.0 Tobacco use
CPT/HCPCS: 36415 ×2; 43239; 80053 ×2; 81001; 82150; 83690; 85025 ×2; 88305; 88312; 99284; C9113 ×2; G0378 ×4; J1630; J2250 ×2; J2270 ×3; J2704; J7030; S0164 ×2

== ENCOUNTER 2019-06-12 09:38 | Observation (INO) | payer BC ==
[~2019-06-12] VITALS: Ht 175.3 cm; Wt 81.4 kg
[~2019-06-12 09:38] MED LIST changes: +SUCRALFATE1 GM PO
--- OUTSIDE RECORDS SUMMARY | 2019-06-12 09:43 | XMS REPORT | Continuity of Care Document ---
Author Author Bent Pixels Address Unknown Phone Unavailable Care Team Providers Care Investment Professional Name [facility] [place] Unavailable Unavailable Problems Problem Status Onset Date Classification Date Reported Comments Source Abdominal pain Active Problem 01/19/2019 [facility] Colitis Active Problem 01/19/2019 [facility] Gastritis Active Problem 01/19/2019 [facility] Sprain of left ankle Active Problem 01/19/2019 [facility] Vomiting Active Problem 01/19/2019 [facility] Medications Medication Details Route Status Patient Instructions Ordering Provider Order Date Source Sucralfate 1 Gm Tablet Before Meals And At Bedtime Active [place] 01/19/2019 [facility] Pantoprazole Sodium (Protonix) 40 Mg Tablet. Twice A Day Active Blain 03/19/2017 [facility] Ciprofloxacin Hcl (Cipro) 500 Mg Tablet, 500 Mg Oral Daily Active 03/19/2017 [facility] Dicyclomine Hcl (Bentyl) 10 Mg Capsule, 10 Mg Oral Three Times A Day Active Blain 03/19/2017 [facility] Metronidazole (Flagyl) 250 Mg Tablet, 500 Mg Oral Every 8 Hours Active 03/19/2017 [facility] Promethazine Hcl (Phenergan Supp*) 25 Mg Supp, 1 Supp Rectal Every 8 Hours as needed for Vomiting Active 03/19/2017 [facility] Pantoprazole Sodium (Protonix) 40 Mg Tablet. Twice A Day Active Blain 03/19/2017 [facility] Ciprofloxacin Hcl (Cipro) 500 Mg Tablet, 500 Mg Oral Daily Active 03/19/2017 [facility] Dicyclomine Hcl (Bentyl) 10 Mg Capsule, 10 Mg Oral Three Times A Day Active Blain 03/19/2017 [facility] Metronidazole (Flagyl) 250 Mg Tablet, 500 Mg Oral Every 8 Hours Active 03/19/2017 [facility] Promethazine Hcl (Phenergan Supp*) 25 Mg Supp, 1 Supp Rectal Every 8 Hours as needed for Vomiting Active 03/19/2017 [facility] Amphet Asp/Amphet/D-Amphet (Adderall Xr 30 Mg Capsule) 30 Mg Cap.er.24h, 30 Mg Oral Twice A Day Active 03/16/2017 [facility] Naproxen 500 Mg Tablet., 500 Mg Oral Twice A Day Active 03/16/2017 [facility] Amphet Asp/Amphet/D-Amphet (Adderall Xr 30 Mg Capsule) 30 Mg Cap.er.24h, 30 Mg Oral Twice A Day Active 03/16/2017 [facility] Naproxen 500 Mg Tablet., 500 Mg Oral Twice A Day Active 03/16/2017 [facility] Amphet Asp/Amphet/D-Amphet (Adderall 30 Mg Tablet) 30 Mg Tablet Daily Active [facility] Ondansetron (Zofran Odt) 4 Mg Tab.rapdis Every 6 Hours as needed for Vomiting Active [facility] Amphet Asp/Amphet/D-Amphet (Adderall 30 Mg Tablet) 30 Mg Tablet Daily Active [facility] Ondansetron (Zofran Odt) 4 Mg Tab.rapdis Every 6 Hours as needed for Vomiting Active [facility] Allergies, Adverse Reactions, Alerts Substance Category Reaction Severity Reaction type Status Date Reported Comments Source STRAWBERRIES RED SPOTS Mild Allergy to Substance Active 11/16/2013 [facility] Immunizations No Data Provided for This Section Results Order Name Results Value Reference Range Date Interpretation Comments Source Blood leukocytes automated count (number/volume) 8.87 4.8 - 10.8 01/17/2019 [facility] Blood erythrocytes automated count (number/volume) 4.35 3.6 - 5.1 01/17/2019 [facility] Blood hemoglobin measurement (moles/volume) 14.3 12.0 - 16.0 01/17/2019 [facility] Automated blood hematocrit (volume fraction) 41.3 34.2 - 44.1 01/17/2019 [facility] Automated erythrocyte mean corpuscular volume 94.9 81 - 99 01/17/2019 [facility] Automated erythrocyte mean corpuscular hemoglobin (mass per erythrocyte) 32.9 28 - 32 01/17/2019 [facility] Automated erythrocyte mean corpuscular hemoglobin concentration measurement (mass/volume) 34.6 31 - 35 01/17/2019 [facility] RDW BldCo-Rto 12.3 11.7 - 14.4 01/17/2019 [facility] Automated blood platelet count (count/volume) 248 140 - 360 01/17/2019 [facility] Automated blood segmented neutrophil count as percentage of total leukocytes 66.1 38.7 - 80.0 01/17/2019 [facility] Automated blood lymphocyte count as percentage ot total leukocytes 24.2 18.0 - 39.1 01/17/2019 [facility] Automated blood monocyte count as percentage of total leukocytes 9.0 4.4 - 11.3 01/17/2019 [facility] Automated blood eosinophil count as percentage of total leukocytes 0.1 0.0 - 6.0 01/17/2019 [facility] Automated blood basophil count as percentage of total leukocytes 0.3 0.0 - 1.0 01/17/2019 [facility] IM GRANULOCYTES % 0.3 0.0 - 1.0 01/17/2019 [facility] Automated blood neutrophil count 5.9 2.1 - 6.9 01/17/2019 [facility] Blood lymphocytes count (number/volume) 2.2 1.0 - 3.2 01/17/2019 [facility] Blood monocytes automated count (number/volume) 0.8 0.2 - 0.8 01/17/2019 [facility] Automated blood eosinophil count 0.0 0.0 - 0.4 01/17/2019 [facility] Automated blood basophil count (count/volume) 0.0 0.0 - 0.1 01/17/2019 [facility] Absolute Immature Granulocyte (auto 0.03 0 - 0.1 01/17/2019 [facility] Serum or plasma sodium measurement (moles/volume) 138 136 - 145 01/17/2019 [facility] Serum or plasma potassium measurement (moles/volume) 3.7 3.5 - 5.1 01/17/2019 [facility] Serum or plasma chloride measurement (moles/volume) 109 98 - 107 01/17/2019 [facility] Serum or plasma carbon dioxide, total measurement (moles/volume) 23 22 - 29 01/17/2019 [facility] Serum or plasma anion gap 9.7 8 - 16 01/17/2019 [facility] Serum or plasma urea nitrogen measurement (mass/volume) 11 7 - 26 01/17/2019 [facility] Serum or plasma creatinine measurement (mass/volume) 0.67 0.57 - 1.11 01/17/2019 [facility] Serum or plasma urea nitrogen/creatinine mass ratio 16 6 - 25 01/17/2019 [facility] Estimated glomerular filtration rate (GFR) determination > 60 60 01/17/2019 [facility] Glucose measurement 103 74 - 118 01/17/2019 [facility] Serum or plasma calcium measurement (mass/volume) 8.5 8.4 - 10.2 01/17/2019 [facility] Serum or plasma total bilirubin measurement (mass/volume) 0.8 0.2 - 1.2 01/17/2019 [facility] Aspartate Amino Transf (AST/SGOT) 11 5 - 34 01/17/2019 [facility] Serum or plasma alanine aminotransferase measurement (enzymatic activity/volume) 9 0 - 55 01/17/2019 [facility] Serum or plasma protein measurement (mass/volume) 5.9 6.5 - 8.1 01/17/2019 [facility] Serum or plasma albumin measurement (mass/volume) 3.2 3.5 - 5.0 01/17/2019 [facility] Plasma globulin measurement (mass/volume) 2.7 2.3 - 3.5 01/17/2019 [facility] Serum or plasma albumin/globulin mass ratio 1.2 0.8 - 2.0 01/17/2019 [facility] Serum or plasma alkaline phosphatase measurement (enzymatic activity/volume) 56 40 - 150 01/17/2019 [facility] Serum or plasma amylase measurement (enzymatic activity/volume) 68 25 - 125 01/16/2019 [facility] Serum or plasma lipase measurement (enzymatic activity/volume) 33 8 - 78 01/16/2019 [facility] Urine color determination YELLOW YELLOW 01/16/2019 [facility] Urine clarity CLOUDY CLEAR 01/16/2019 [facility] Specific gravity of Urine by Test strip 1.020 1.010 - 1.025 01/16/2019 [facility] Urine pH measurement by automated test strip 7 5 - 7 01/16/2019 [facility] Urine leukocyte esterase detection by dipstick TRACE NEGATIVE 01/16/2019 [facility] Urine nitrite detection NEGATIVE NEGATIVE 01/16/2019 [facility] Urine protein measurement by test strip (mass/volume) 2+ NEGATIVE 01/16/2019 [facility] Urine glucose detection NEGATIVE NEGATIVE 01/16/2019 [facility] Urine ketones detection by automated test strip 3+ NEGATIVE 01/16/2019 [facility] Urine urobilinogen measurement by test strip (mass/volume) 1 0.2 - 1 01/16/2019 [facility] Urine total bilirubin measurement (mass/volume) 1+ NEGATIVE 01/16/2019 [facility] Urine erythrocytes detection NEGATIVE NEGATIVE 01/16/2019 [facility] Automated urine sediment leukocyte count by microscopy (number/high power field) 0-5 0 - 5 01/16/2019 [facility] Erythrocytes detection in urine sediment by light microscopy NONE 0 - 5 01/16/2019 [facility] Bacteria detection in urine sediment by light microscopy RARE NONE 01/16/2019 [facility] Epithelial cells detection in urine sediment by light microscopy MANY NONE 01/16/2019 [facility] Calcium oxalate crystals detection in urine sediment by light microscopy MODERATE FEW 01/16/2019 [facility] Prothrombin time (PT) in platelet poor plasma by coagulation assay 12.6 11.9 - 14.5 01/14/2019 [facility] INR in Platelet poor plasma by Coagulation assay 0.90 01/14/2019 [facility] Activated partial thromboplastin time (aPTT) in platelet poor plasma bycoagulation assay 24.1 23.8 - 35.5 01/14/2019 [facility] Urine opiates screening test NEGATIVE NEGATIVE 01/14/2019 [facility] Barbiturates screen, urine NEGATIVE NEGATIVE 01/14/2019 [facility] Urine phencyclidine detection by screening method NEGATIVE NEGATIVE 01/14/2019 [facility] Urine amphetamines detection by screen method > 1000 ng/mL POSITIVE NEGATIVE 01/14/2019 [facility] Urine Methamphetamines Screen NEGATIVE NEGATIVE 01/14/2019 [facility] Urine benzodiazepines detection by screening method NEGATIVE NEGATIVE 01/14/2019 [facility] Urine cocaine measurement (mass/volume) POSITIVE NEGATIVE 01/14/2019 [facility] Urine cannabinoids detection by screening method POSITIVE NEGATIVE 01/14/2019 [facility] Urine methadone screen NEGATIVE NEGATIVE 01/14/2019 [facility] Amorphous sediment detection in urine sediment by light microscopy MODERATE FEW 01/14/2019 [facility] Urine human chorionic gonadotropin (hCG) detection NEGATIVE NEGATIVE 01/14/2019 [facility] Serum or plasma magnesium measurement (mass/volume) 2.2 1.3 - 2.1 01/14/2019 [facility] Serum or plasma creatine kinase measurement (enzymatic activity/volume) 86 29 - 168 01/14/2019 [facility] Serum or plasma creatine kinase MB measurement (mass/volume) 3.00 0 - 5.0 01/14/2019 [facility] Troponin I measurement by highly sensitive enzyme immunoassay 0.004 0 - 0.300 01/14/2019 [facility] Serum or plasma acetaminophen measurement by screening method (mass/volume) < 3 10 - 30 01/14/2019 [facility] Serum or plasma ethanol measurement (mass/volume) < 10.0 0.0 - 10.0 01/14/2019 [facility] Automated blood basophil count (count/volume) Automated blood basophil count (count/volume) 0.0 0.0 - 0.1 11/15/2017 [facility] Automated blood basophil count as percentage of total leukocytes Automated blood basophil count as percentage of total leukocytes 0.1 0.0 - 1.0 11/15/2017 [facility] Automated blood eosinophil count Automated blood eosinophil count 0.0 0.0 - 0.4 11/15/2017 [facility] Automated blood eosinophil count as percentage of total leukocytes Automated blood eosinophil count as percentage of total leukocytes 0.0 0.0 - 6.0 11/15/2017 [facility] Automated blood hematocrit (volume fraction) Automated blood hematocrit (volume fraction) 43.1 34.2 - 44.1 11/15/2017 [facility] Automated blood lymphocyte count as percentage ot total leukocytes Automated blood lymphocyte count as percentage ot total leukocytes 1.7 18.0 - 39.1 11/15/2017 [facility] Automated blood monocyte count as percentage of total leukocytes Automated blood monocyte count as percentage of total leukocytes 1.9 4.4 - 11.3 11/15/2017 [facility] Automated blood neutrophil count Automated blood neutrophil count 14.8 2.1 - 6.9 11/15/2017 [facility] Automated blood platelet count (count/volume) Automated blood platelet count (count/volume) 286 140 - 360 11/15/2017 [facility] Automated blood segmented neutrophil count as percentage of total leukocytes Automated blood segmented neutrophil count as percentage of total leukocytes 95.8 38.7 - 80.0 11/15/2017 [facility] Automated erythrocyte mean corpuscular hemoglobin (mass per erythrocyte) Automated erythrocyte mean corpuscular hemoglobin (mass per erythrocyte) 33.6 28 - 32 11/15/2017 [facility] Automated erythrocyte mean corpuscular hemoglobin concentration measurement (mass/volume) Automated erythrocyte mean corpuscular hemoglobin concentration measurement (mass/volume) 35.0 31 - 35 11/15/2017 [facility] Automated erythrocyte mean corpuscular volume Automated erythrocyte mean corpuscular volume 96.0 81 - 99 11/15/2017 [facility] Automated urine sediment leukocyte count by microscopy (number/high power field) Automated urine sediment leukocyte count by microscopy (number/high power field) <5 0 - 5 11/15/2017 [facility] Bacteria detection in urine sediment by light microscopy Bacteria detection in urine sediment by light microscopy NONE NONE 11/15/2017 [facility] Blood erythrocytes automated count (number/volume) Blood erythrocytes automated count (number/volume) 4.49 3.6 - 5.1 11/15/2017 [facility] Blood hemoglobin measurement (moles/volume) Blood hemoglobin measurement (moles/volume) 15.1 12.0 - 16.0 11/15/2017 [facility] Blood leukocytes automated count (number/volume) Blood leukocytes automated count (number/volume) 15.49 4.8 - 10.8 11/15/2017 [facility] Blood lymphocytes count (number/volume) Blood lymphocytes count (number/volume) 0.3 1.0 - 3.2 11/15/2017 [facility] Blood monocytes automated count (number/volume) Blood monocytes automated count (number/volume) 0.3 0.2 - 0.8 11/15/2017 [facility] Blood platelets count by estimate (number/volume) Blood platelets count by estimate (number/volume) ADEQUATE 11/15/2017 [facility] Epithelial cells detection in urine sediment by light microscopy Epithelial cells detection in urine sediment by light microscopy MODERATE NONE 11/15/2017 [facility] Erythrocytes detection in urine sediment by light microscopy Erythrocytes detection in urine sediment by light microscopy NONE 0 - 5 11/15/2017 [facility] Estimated glomerular filtration rate (GFR) determination Estimated glomerular filtration rate (GFR) determination >60 60 11/15/2017 [facility] Glucose measurement Glucose measurement 171 74 - 118 11/15/2017 [facility] Manual blood lymphocytes/100 leukocytes Manual blood lymphocytes/100 leukocytes 5 19 - 48 11/15/2017 [facility] Manual blood monocytes/100 leukocytes Manual blood monocytes/100 leukocytes 3 3.4 - 9.0 11/15/2017 [facility] Manual blood neutrophils/100 leukocytes Manual blood neutrophils/100 leukocytes 92 40 - 74 11/15/2017 [facility] Plasma globulin measurement (mass/volume) Plasma globulin measurement (mass/volume) 3.2 2.3 - 3.5 11/15/2017 [facility] Platelet morphology Platelet morphology NORMAL 11/15/2017 [facility] RBC morphology RBC morphology NORMAL 11/15/2017 [facility] Serum or plasma alanine aminotransferase measurement (enzymatic activity/volume) Serum or plasma alanine aminotransferase measurement (enzymatic activity/volume) 18 0 - 55 11/15/2017 [facility] Serum or plasma albumin measurement (mass/volume) Serum or plasma albumin measurement (mass/volume) 4.3 3.5 - 5.0 11/15/2017 [facility] Serum or plasma albumin/globulin mass ratio Serum or plasma albumin/globulin mass ratio 1.3 0.8 - 2.0 11/15/2017 [facility] Serum or plasma alkaline phosphatase measurement (enzymatic activity/volume) Serum or plasma alkaline phosphatase measurement (enzymatic activity/volume) 72 40 - 150 11/15/2017 [facility] Serum or plasma amylase measurement (enzymatic activity/volume) Serum or plasma amylase measurement (enzymatic activity/volume) 42 25 - 125 11/15/2017 [facility] Serum or plasma anion gap Serum or plasma anion gap 14.3 8 - 16 11/15/2017 [facility] Serum or plasma calcium measurement (mass/volume) Serum or plasma calcium measurement (mass/volume) 9.1 8.4 - 10.2 11/15/2017 [facility] Serum or plasma carbon dioxide, total measurement (moles/volume) Serum or plasma carbon dioxide, total measurement (moles/volume) 22 22 - 29 11/15/2017 [facility] Serum or plasma chloride measurement (moles/volume) Serum or plasma chloride measurement (moles/volume) 107 98 - 107 11/15/2017 [facility] Serum or plasma choriogonadotropin ( test) detection Serum or plasma choriogonadotropin ( test) detection NEGATIVE NEGATIVE 11/15/2017 [facility] Serum or plasma creatine kinase MB measurement (mass/volume) Serum or plasma creatine kinase MB measurement (mass/volume) 2.20 0.00 - 5.00 11/15/2017 [facility] Serum or plasma creatine kinase measurement (enzymatic activity/volume) Serum or plasma creatine kinase measurement (enzymatic activity/volume) 80 29 - 168 11/15/2017 [facility] Serum or plasma creatinine measurement (mass/volume) Serum or plasma creatinine measurement (mass/volume) 0.79 0.57 - 1.11 11/15/2017 [facility] Serum or plasma lipase measurement (enzymatic activity/volume) Serum or plasma lipase measurement (enzymatic activity/volume) 15 8 - 78 11/15/2017 [facility] Serum or plasma potassium measurement (moles/volume) Serum or plasma potassium measurement (moles/volume) 4.3 3.5 - 5.1 11/15/2017 [facility] Serum or plasma protein measurement (mass/volume) Serum or plasma protein measurement (mass/volume) 7.5 6.5 - 8.1 11/15/2017 [facility] Serum or plasma sodium measurement (moles/volume) Serum or plasma sodium measurement (moles/volume) 139 136 - 145 11/15/2017 [facility] Serum or plasma total bilirubin measurement (mass/volume) Serum or plasma total bilirubin measurement (mass/volume) 1.0 0.2 - 1.2 11/15/2017 [facility] Serum or plasma troponin i.cardiac measurement by detection limit <=0.01 NG/ml (mass/volume) Serum or plasma troponin i.cardiac measurement by detection limit <=0.01 NG/ml (mass/volume) <0.001 0 - 0.300 11/15/2017 [facility] Serum or plasma urea nitrogen measurement (mass/volume) Serum or plasma urea nitrogen measurement (mass/volume) 18 7 - 26 11/15/2017 [facility] Serum or plasma urea nitrogen/creatinine mass ratio Serum or plasma urea nitrogen/creatinine mass ratio 23 6 - 25 11/15/2017 [facility] Specific gravity of Urine by Test strip Specific gravity of Urine by Test strip 1.025 1.010 - 1.025 11/15/2017 [facility] Urine clarity Urine clarity HAZY CLEAR 11/15/2017 [facility] Urine color determination Urine color determination YELLOW YELLOW 11/15/2017 [facility] Urine erythrocytes detection Urine erythrocytes detection 3+ NEGATIVE 11/15/2017 [facility] Urine glucose detection Urine glucose detection NEGATIVE NEGATIVE 11/15/2017 [facility] Urine human chorionic gonadotropin (hCG) detection Urine human chorionic gonadotropin (hCG) detection NEGATIVE NEGATIVE 11/15/2017 [facility] Urine ketones detection by automated test strip Urine ketones detection by automated test strip 3+ NEGATIVE 11/15/2017 [facility] Urine leukocyte esterase detection by dipstick Urine leukocyte esterase detection by dipstick NEGATIVE NEGATIVE 11/15/2017 [facility] Urine nitrite detection Urine nitrite detection NEGATIVE NEGATIVE 11/15/2017 [facility] Urine pH measurement by automated test strip Urine pH measurement by automated test strip 6 5 - 7 11/15/2017 [facility] Urine protein measurement by test strip (mass/volume) Urine protein measurement by test strip (mass/volume) NEGATIVE NEGATIVE 11/15/2017 [facility] Urine total bilirubin measurement (mass/volume) Urine total bilirubin measurement (mass/volume) NEGATIVE NEGATIVE 11/15/2017 [facility] Urine urobilinogen measurement by test strip (mass/volume) Urine urobilinogen measurement by test strip (mass/volume) 0.2 0.2 - 1 11/15/2017 [facility] Red Cell Distribution Width 12.2 11.7 - 14.4 11/15/2017 [facility] IM GRANULOCYTES % 0.5 0.0 - 1.0 11/15/2017 [facility] Absolute Immature Granulocyte (auto 0.07 0 - 0.1 11/15/2017 [facility] Differential Total Cells Counted 100 11/15/2017 [facility] Aspartate Amino Transf (AST/SGOT) 16 5 - 34 11/15/2017 [facility] Activated partial thromboplastin time (aPTT) in platelet poor plasma bycoagulation assay Activated partial thromboplastin time (aPTT) in platelet poor plasma bycoagulation assay 27.0 23.8 - 35.5 09/24/2017 [facility] INR in Platelet poor plasma by Coagulation assay INR in Platelet poor plasma by Coagulation assay 0.90 09/24/2017 [facility] Prothrombin time (PT) in platelet poor plasma by coagulation assay Prothrombin time (PT) in platelet poor plasma by coagulation assay 10.2 11.9 - 14.5 09/24/2017 [facility] Serum or plasma acetaminophen measurement by screening method (mass/volume) Serum or plasma acetaminophen measurement by screening method (mass/volume) <3 10 - 30 09/24/2017 [facility] Serum or plasma magnesium measurement (mass/volume) Serum or plasma magnesium measurement (mass/volume) 2.1 1.3 - 2.1 09/24/2017 [facility] Serum or plasma salicylates measurement (mass/volume) Serum or plasma salicylates measurement (mass/volume) <5.0 0 - 30 09/24/2017 [facility] Serum or plasma thyrotropin measurement by detection limit <=0.005 miu/l (units/volume) Serum or plasma thyrotropin measurement by detection limit <=0.005 miu/l (units/volume) 0.860 0.350 - 4.940 09/24/2017 [facility] B-Type Natriuretic Peptide 88.7 0 - 100 09/24/2017 [facility] Amorphous sediment detection in urine sediment by light microscopy Amorphous sediment detection in urine sediment by light microscopy MODERATE FEW 09/24/2017 [facility] Clostridium difficile A and B toxin assay Clostridium difficile A and B toxin assay NEGATIVE NEGATIVE 03/17/2017 [facility] Stool calprotectin measurement (mass/mass) Stool calprotectin measurement (mass/mass) <16 0 - 120 03/17/2017 [facility] [facility] Stool lactoferrin detection Stool lactoferrin detection NEGATIVE NEGATIVE 03/17/2017 [facility] Bacterial blood culture Bacterial blood culture Organism: STAPHYLOCOCCUS SP COAG NEG 03/16/2017 [facility] Blood culture Blood culture Growth detected. Culture workup ordered. 03/16/2017 [facility] Pathology Reports No Data Provided for This Section Diagnostic Reports No Data Provided for This Section Consultation Notes No Data Provided for This Section Discharge Summaries No Data Provided for This Section History and Physicals No Data Provided for This Section Vital Signs No Data Provided for This Section Encounters Location Location Details Encounter Type Encounter Number Reason For Visit Attending Provider ADM Date DC Date Status Source Discharged Inpatient [id number] TATYANA RAM MD 03/16/2017 03/19/2017 [facility] Departed Emergency Room [id number] SADI MUSTAFA MD 08/09/2017 08/09/2017 [facility] Discharged Inpatient [id number] TATYANA RAM MD 09/28/2017 09/28/2017 [facility] Departed Emergency Room [id number] SADI MUSTAFA MD 11/15/2017 11/15/2017 [facility] Departed Emergency Room [id number] CINDY JURADO MD 01/14/2019 01/14/2019 [facility] Departed Emergency Room [id number] CINDY JURADO MD 01/15/2019 01/15/2019 [facility] Discharged Inpatient (obs) [id number] TATYANA RAM MD 01/16/2019 01/19/2019 [facility] Procedures Procedure Code Date Perfomer Comments Source EGD with biopsy [id number] 01/18/2019 [facility] Computed tomography of abdomen and pelvis with contrast [id number] 01/14/2019 [facility] DILATION OF STOMACH, PYLORUS, ENDO [id number] 09/27/2017 [facility] EXCISION OF STOMACH, PYLORUS, ENDO, DIAGN [id number] 09/27/2017 [facility] APPLICATION LOWER LEG SPLINT [id number] 08/09/2017 [facility] EXCISION OF STOMACH, ENDO, DIAGN [id number] 03/17/2017 [facility] EXCISION OF RECTUM, ENDO, DIAGN [id number] 03/17/2017 [facility] EXCISION OF DESCENDING COLON, ENDO, DIAGN [id number] 03/17/2017 [facility] Assessment and Plan No Data Provided for This Section Plan of Care Plan of Care Date Source Discharge Date 01/19/19 11:34am Disposition HOME, SELF-CARE Instructions/Education Provided Abdominal Pain - Adult Prescriptions See Medication Section Referrals AZUL APARICIO MD (Gastroenterology) Order Date: 2 Weeks Entered Date: 01/19/2019 11:26am Address: [address] [place] [id number] Additional Instructions/Education FOLLOW-UP WITH PCP AND GI. 01/19/2019 [facility] Discharge Date 11/15/17 6:40pm Disposition HOME, SELF-CARE Condition at Discharge Stable Instructions/Education Provided Abdominal Pain - Adult Forms Provided Work/School Excuse Prescriptions See Medication Section Referrals AZUL APARICIO MD Order Date: Call for an appointment Address: [address] [facility] [address] [place] [address] FRANCK OROZCO Order Date: Call for an appointment Address: [address] [place], [place] [id number] Additional Instructions/Education 1. follow up with gi doctor in 1-2 days without fail 2. return to ed as needed 3. increase oral fluids 11/15/2017 [facility] Social History Social History Date Source Social History Problem Response Recorded Date/Time Onset Date Status Hx Psychiatric Problems No 09/24/2017 1:40pm Not Applicable Not Applicable Hx Eating Disorder No 09/24/2017 1:40pm Not Applicable Not Applicable Hx Substance Use Disorder No 09/24/2017 1:40pm Not Applicable Not Applicable Hx Depression No 09/24/2017 1:40pm Not Applicable Not Applicable Hx Alcohol Use No 09/24/2017 1:40pm Not Applicable Not Applicable Hx Substance Use Treatment No 09/24/2017 1:40pm Not Applicable Not Applicable Hx Physical Abuse No 09/24/2017 1:40pm Not Applicable Not Applicable Smoking Status Start Date Stop Date Current every day smoker 01/19/2019 [facility] Family History No Data Provided for This Section Advance Directives Order Name Results Value Date Source Advance Directives Advance Directives Directive Response Recorded Date/Time Does the patient have an advance directive? No 01/16/19 9:00pm If yes, is advance directive on file with [facility]? No 01/16/19 9:00pm If not on file with [facility] will patient provide a copy? No 01/16/19 9:00pm Do you have a Directive to Physician? No 01/16/19 6:08pm Do you have a Medical Power of Packer Inspector? No 01/16/19 6:08pm Do you have an out of hospital Do Not Resuscitate Order? No 01/16/19 6:08pm Do you have any special needs we should be aware of? No 01/16/19 6:08pm Do you have a support person here with you today? Yes 01/16/19 6:08pm Did patient receive Notice of Privacy Practices? No 01/16/19 6:08pm Did patient receive patient rights and responsibilities? No 01/16/19 6:08pm 01/19/2019 [facility] Advance Directives Advance Directives Directive Response Recorded Date/Time Does the patient have an advance directive? No 09/24/17 1:40pm If yes, is advance directive on file with [facility]? No 09/24/17 1:40pm If not on file with [facility] will patient provide a copy? No 09/24/17 1:40pm Do you have a Directive to Physician? No 11/15/17 4:11pm Do you have a Medical Power of Packer Inspector? No 11/15/17 4:11pm Do you have an out of hospital Do Not Resuscitate Order? No 11/15/17 4:11pm Do you have any special needs we should be aware of? No 11/15/17 4:11pm Do you have a support person here with you today? Yes 11/15/17 4:11pm Did patient receive Notice of Privacy Practices? Yes 11/15/17 4:11pm Did patient receive patient rights and responsibilities? Yes 11/15/17 4:11pm 11/15/2017 [facility] Functional Status No Data Provided for This Section
[2019-06-12] MEDS ORDERED: MORPHINE SULFATE 2 MG/ML SYR 1ML IV STA (09:56)
[2019-06-12] MEDS ORDERED: PANTOPRAZOLE 40 MG 10ML VIAL IV STA (09:56)
[2019-06-12] MEDS ORDERED: ONDANSETRON HCL INJ 2MG/ML 2ML 2 MG/ML VIAL IV STA (09:56)
[2019-06-12] MEDS ORDERED: SODIUM CHLORIDE 0.9% 1000ML 1,000 ML IV STA (09:56)
[2019-06-12] MEDS ORDERED: SODIUM CHLORIDE 0.9% 1000ML 1,000 ML ONE (10:00)
[2019-06-12] MEDS ORDERED: ONDANSETRON HCL INJ 2MG/ML 2ML 2 MG/ML VIAL ONE (10:00)
[2019-06-12] MEDS ORDERED: MORPHINE SULFATE 2 MG/ML SYR 1ML ONE (10:01)
[2019-06-12 10:15] LABS: BASOPHILS % 0.3 % (0.0-1.0); EOSINOPHILS # (AUTO) 0.1 (0.0-0.4); EOSINOPHILS % 0.5 % (0.0-6.0); HEMATOCRIT 44.6 % (34.2-44.1); HEMOGLOBIN 15.5 g/dL (12.0-16.0); LYMPHOCYTES # (AUTO) 1.3 (1.0-3.2); LYMPHOCYTES % 11.5 % (18.0-39.1); MEAN CORPUSCULAR HEMOGLOBIN 33.6 pg (28-32); MEAN CORPUSCULAR HGB CONC 34.8 g/dL (31-35); MEAN CORPUSCULAR VOLUME 96.7 fL (81-99); MONOCYTES # (AUTO) 0.7 (0.2-0.8); MONOCYTES % 5.8 % (4.4-11.3); NEUTROPHILS # (AUTO) 9.2 (2.1-6.9); NEUTROPHILS % 81.5 % (38.7-80.0); PLATELET COUNT 316 x10e3/uL (140-360); RED BLOOD COUNT 4.61 x10e6/uL (3.6-5.1); RED CELL DISTRIBUTION WIDTH 12.9 % (11.7-14.4)
[2019-06-12 10:18] LABS: BILIRUBIN,URINE NEGATIVE (NEGATIVE); CLARITY,URINE SL CLOUDY (CLEAR); COLOR,URINE YELLOW (YELLOW); KETONES,URINE NEGATIVE (NEGATIVE); LEUKOCYTE ESTERASE ,URINE NEGATIVE (NEGATIVE); NITRITE,URINE NEGATIVE (NEGATIVE); PROTEIN,URINE DIPSTICK NEGATIVE (NEGATIVE); URINE UROBILINOGEN 0.2 mg/dL (0.2 - 1)
[2019-06-12 10:21] LABS: PREGNANCY TEST, URINE NEGATIVE (NEGATIVE)
[2019-06-12] MEDS ORDERED: DIATRIZOATE MEGL/DIATRIZOA SOD 30 ML BTL PO ONE (10:30)
[2019-06-12 10:34] LABS: ALANINE AMINOTRANSFERASE 12 IU/L (0-55); ALBUMIN/GLOBULIN RATIO 1.3 (0.8-2.0); ALKALINE PHOSPHATASE 74 IU/L (40-150); ANION GAP 10.3 mmol/L (8-16); BLOOD UREA NITROGEN 11 mg/dL (7-26); BUN/CREATININE RATIO 13 (6-25); CALCIUM 9.5 mg/dL (8.4-10.2); CARBON DIOXIDE 29 mmol/L (22-29); CHLORIDE 105 mmol/L (98-107); CREATININE, SERUM 0.84 mg/dL (0.57-1.11); EST GLOMERULAR FILTRATION RATE > 60 ML/MIN (60-); GLUCOSE 115 mg/dL (74-118); POTASSIUM 4.3 mmol/L (3.5-5.1); SODIUM 140 mmol/L (136-145)
[2019-06-12 10:35] LABS: RBC,URINE 0-5 /HPF (0-5); WBC,URINE (MAN) 0-5 /HPF (0-5)
[2019-06-12 10:36] LABS: BACTERIA,URINE MODERATE /HPF; EPITHELIAL CELLS,URINE FEW /LPF; MUCUS,URINE FEW (RARE)
[2019-06-12 10:59] LABS: AMYLASE 65 U/L (25-125); LIPASE 27 U/L (8-78)
--- NOTE | 2019-06-12 12:16 | Diagnostic Imaging Report ---
EXAM: CT of the abdomen and pelvis WITH contrast HISTORY: Upper abdominal pain, status post cholecystectomy years ago, additional history of appendectomy COMPARISON: CT of the abdomen and pelvis January 14, 2019. TECHNIQUE: The abdomen and pelvis were scanned utilizing a multidetector helical scanner. Coronal and sagittal reformats are provided. PROTOCOL: Routine IV CONTRAST: 100 cc of Isovue-370. ORAL CONTRAST: Dilute Gastrografin RADIATION DOSE: Total DLP: 416.03 mGy*cm Estimated effective dose: (DLP x 0.015 x size factor) Dose modulation, iterative reconstruction, and/or weight based adjustment of the mA/kV was utilized to reduce the radiation dose to as low as reasonably achievable. COMPLICATIONS: None FINDINGS: LOWER THORAX: Unremarkable. HEPATOBILIARY: No mass. Slightly increased prominence of the common bile duct and central intrahepatic ducts. Cholecystectomy clips. SPLEEN: No splenomegaly. PANCREAS: No focal masses or ductal dilatation. ADRENALS: No discrete adrenal nodule. KIDNEYS/URETERS: No hydronephrosis, stones, or definite solid mass lesions. PELVIC ORGANS/BLADDER: There are no bladder is predominantly decompressed, which limits evaluation. The uterus is anteflexed. A 3.4 cm fluid density at the right adnexal region. GI TRACT: No dilation or wall thickening identified. Postsurgical changes compatible with prior appendectomy. PERITONEUM / RETROPERITONEUM: No free air or fluid. LYMPH NODES: No pathologically enlarged lymph node. VESSELS: Unremarkable. BONES and JOINTS: No aggressive osseous lesion or acute fracture. SOFT TISSUES: Unremarkable. IMPRESSION: 1. Slightly increased prominence of the common bile duct and central intrahepatic ducts, likely reservoir effect secondary to the remote cholecystectomy. However, correlate with laboratory values to exclude evidence of biliary obstruction. 2. Probable 3.4 cm right ovarian cyst. Recommend a follow-up transabdominal and transvaginal pelvic ultrasound in 6 weeks to assess for resolution. Signed by: Shanel Patterson.Jah., M.M.M. on 06/12/2019 12:12 PM
[2019-06-12] MEDS ORDERED: METOCLOPRAMIDE HCL 10 MG/2ML VIAL IV ONE (12:45)
--- OUTSIDE RECORDS SUMMARY | 2019-06-12 13:33 | XMS REPORT | Continuity of Care Document ---
Author Author [employer] Address Unknown Phone Unavailable Care Team Providers Care Automation Controls Specialist Name Role [facility] [place] Unavailable Unavailable Problems Problem Status Onset Date Classification Date Reported Comments Source Abdominal pain Active Problem 01/19/2019 [facility] Colitis Active Problem 01/19/2019 [facility] Gastritis Active Problem 01/19/2019 [facility] Sprain of left ankle Active Problem 01/19/2019 [facility] Vomiting Active Problem 01/19/2019 [facility] Medications Medication Details Route Status Patient Instructions Ordering Provider Order Date Source Sucralfate 1 Gm Tablet Before Meals And At Bedtime Active [place] 01/19/2019 [facility] Pantoprazole Sodium (Protonix) 40 Mg Tablet. Twice A Day Active [place] 03/19/2017 [facility] Ciprofloxacin Hcl (Cipro) 500 Mg Tablet, 500 Mg Oral Daily Active 03/19/2017 [facility] Dicyclomine Hcl (Bentyl) 10 Mg Capsule, 10 Mg Oral Three Times A Day Active [place] 03/19/2017 [facility] Metronidazole (Flagyl) 250 Mg Tablet, 500 Mg Oral Every 8 Hours Active 03/19/2017 [facility] Promethazine Hcl (Phenergan Supp*) 25 Mg Supp, 1 Supp Rectal Every 8 Hours as needed for Vomiting Active 03/19/2017 [facility] Pantoprazole Sodium (Protonix) 40 Mg Tablet. Twice A Day Active [place] 03/19/2017 [facility] Ciprofloxacin Hcl (Cipro) 500 Mg Tablet, 500 Mg Oral Daily Active 03/19/2017 [facility] Dicyclomine Hcl (Bentyl) 10 Mg Capsule, 10 Mg Oral Three Times A Day Active [place] 03/19/2017 [facility] Metronidazole (Flagyl) 250 Mg Tablet, 500 Mg Oral Every 8 Hours Active 03/19/2017 [facility] Promethazine Hcl (Phenergan Supp*) 25 Mg Supp, 1 Supp Rectal Every 8 Hours as needed for Vomiting Active 03/19/2017 [facility] Amphet Asp/Amphet/D-Amphet (Adderall Xr 30 Mg Capsule) 30 Mg Cap.er.24h, 30 Mg Oral Twice A Day Active 03/16/2017 [facility] Naproxen 500 Mg Tablet., 500 Mg Oral Twice A Day Active 03/16/2017 [facility] Amphet Asp/Amphet/D-Amphet (Adderall Xr 30 Mg Capsule) 30 Mg Cap.er.24h, 30 Mg Oral Twice A Day Active 03/16/2017 [facility] Naproxen 500 Mg Tablet., 500 Mg Oral Twice A Day Active 03/16/2017 [facility] Amphet Asp/Amphet/D-Amphet (Adderall 30 Mg Tablet) 30 Mg Tablet Daily Active [facility] Ondansetron (Zofran Odt) 4 Mg Tab.rapdis Every 6 Hours as needed for Vomiting Active [facility] Amphet Asp/Amphet/D-Amphet (Adderall 30 Mg Tablet) 30 Mg Tablet Daily Active [facility] Ondansetron (Zofran Odt) 4 Mg Tab.rapdis Every 6 Hours as needed for Vomiting Active [facility] Allergies, Adverse Reactions, Alerts Substance Category Reaction Severity Reaction type Status Date Reported Comments Source [place]AW[place] Mild Allergy to Substance Active 11/16/2013 [facility] Immunizations No Data Provided for This Section Results Order Name Results Value Reference Range Date Interpretation Comments Source Blood leukocytes automated count (number/volume) 8.87 4.8 - 10.8 01/17/2019 [facility] Blood erythrocytes automated count (number/volume) 4.35 3.6 - 5.1 01/17/2019 [facility] Blood hemoglobin measurement (moles/volume) 14.3 12.0 - 16.0 01/17/2019 [facility] Automated blood hematocrit (volume fraction) 41.3 34.2 - 44.1 01/17/2019 [facility] Automated erythrocyte mean corpuscular volume 94.9 81 - 99 01/17/2019 [facility] Automated erythrocyte mean corpuscular hemoglobin (mass per erythrocyte) 32.9 28 - 32 01/17/2019 [facility] Automated erythrocyte mean corpuscular hemoglobin concentration measurement (mass/volume) 34.6 31 - 35 01/17/2019 [facility] RDW BldCo-Rto 12.3 11.7 - 14.4 01/17/2019 [facility] Automated blood platelet count (count/volume) 248 140 - 360 01/17/2019 [facility] Automated blood segmented neutrophil count as percentage of total leukocytes 66.1 38.7 - 80.0 01/17/2019 [facility] Automated blood lymphocyte count as percentage ot total leukocytes 24.2 18.0 - 39.1 01/17/2019 [facility] Automated blood monocyte count as percentage of total leukocytes 9.0 4.4 - 11.3 01/17/2019 [facility] Automated blood eosinophil count as percentage of total leukocytes 0.1 0.0 - 6.0 01/17/2019 [facility] Automated blood basophil count as percentage of total leukocytes 0.3 0.0 - 1.0 01/17/2019 [facility] IM GRANULOCYTES % 0.3 0.0 - 1.0 01/17/2019 [facility] Automated blood neutrophil count 5.9 2.1 - 6.9 01/17/2019 [facility] Blood lymphocytes count (number/volume) 2.2 1.0 - 3.2 01/17/2019 [facility] Blood monocytes automated count (number/volume) 0.8 0.2 - 0.8 01/17/2019 [facility] Automated blood eosinophil count 0.0 0.0 - 0.4 01/17/2019 [facility] Automated blood basophil count (count/volume) 0.0 0.0 - 0.1 01/17/2019 [facility] Absolute Immature Granulocyte (auto 0.03 0 - 0.1 01/17/2019 [facility] Serum or plasma sodium measurement (moles/volume) 138 136 - 145 01/17/2019 [facility] Serum or plasma potassium measurement (moles/volume) 3.7 3.5 - 5.1 01/17/2019 [facility] Serum or plasma chloride measurement (moles/volume) 109 98 - 107 01/17/2019 [facility] Serum or plasma carbon dioxide, total measurement (moles/volume) 23 22 - 29 01/17/2019 [facility] Serum or plasma anion gap 9.7 8 - 16 01/17/2019 [facility] Serum or plasma urea nitrogen measurement (mass/volume) 11 7 - 26 01/17/2019 [facility] Serum or plasma creatinine measurement (mass/volume) 0.67 0.57 - 1.11 01/17/2019 [facility] Serum or plasma urea nitrogen/creatinine mass ratio 16 6 - 25 01/17/2019 [facility] Estimated glomerular filtration rate (GFR) determination > 60 60 01/17/2019 [facility] Glucose measurement 103 74 - 118 01/17/2019 [facility] Serum or plasma calcium measurement (mass/volume) 8.5 8.4 - 10.2 01/17/2019 [facility] Serum or plasma total bilirubin measurement (mass/volume) 0.8 0.2 - 1.2 01/17/2019 [facility] Aspartate Amino Transf (AST/SGOT) 11 5 - 34 01/17/2019 [facility] Serum or plasma alanine aminotransferase measurement (enzymatic activity/volume) 9 0 - 55 01/17/2019 [facility] Serum or plasma protein measurement (mass/volume) 5.9 6.5 - 8.1 01/17/2019 [facility] Serum or plasma albumin measurement (mass/volume) 3.2 3.5 - 5.0 01/17/2019 [facility] Plasma globulin measurement (mass/volume) 2.7 2.3 - 3.5 01/17/2019 [facility] Serum or plasma albumin/globulin mass ratio 1.2 0.8 - 2.0 01/17/2019 [facility] Serum or plasma alkaline phosphatase measurement (enzymatic activity/volume) 56 40 - 150 01/17/2019 [facility] Serum or plasma amylase measurement (enzymatic activity/volume) 68 25 - 125 01/16/2019 [facility] Serum or plasma lipase measurement (enzymatic activity/volume) 33 8 - 78 01/16/2019 [facility] Urine color determination YELLOW YELLOW 01/16/2019 [facility] Urine clarity CLOUDY CLEAR 01/16/2019 [facility] Specific gravity of Urine by Test strip 1.020 1.010 - 1.025 01/16/2019 [facility] Urine pH measurement by automated test strip 7 5 - 7 01/16/2019 [facility] Urine leukocyte esterase detection by dipstick TRACE NEGATIVE 01/16/2019 [facility] Urine nitrite detection NEGATIVE NEGATIVE 01/16/2019 [facility] Urine protein measurement by test strip (mass/volume) 2+ NEGATIVE 01/16/2019 [facility] Urine glucose detection NEGATIVE NEGATIVE 01/16/2019 [facility] Urine ketones detection by automated test strip 3+ NEGATIVE 01/16/2019 [facility] Urine urobilinogen measurement by test strip (mass/volume) 1 0.2 - 1 01/16/2019 [facility] Urine total bilirubin measurement (mass/volume) 1+ NEGATIVE 01/16/2019 [facility] Urine erythrocytes detection NEGATIVE NEGATIVE 01/16/2019 [facility] Automated urine sediment leukocyte count by microscopy (number/high power field) 0-5 0 - 5 01/16/2019 [facility] Erythrocytes detection in urine sediment by light microscopy NONE 0 - 5 01/16/2019 [facility] Bacteria detection in urine sediment by light microscopy RARE NONE 01/16/2019 [facility] Epithelial cells detection in urine sediment by light microscopy MANY NONE 01/16/2019 [facility] Calcium oxalate crystals detection in urine sediment by light microscopy MODERATE FEW 01/16/2019 [facility] Prothrombin time (PT) in platelet poor plasma by coagulation assay 12.6 11.9 - 14.5 01/14/2019 [facility] INR in Platelet poor plasma by Coagulation assay 0.90 01/14/2019 [facility] Activated partial thromboplastin time (aPTT) in platelet poor plasma bycoagulation assay 24.1 23.8 - 35.5 01/14/2019 [facility] Urine opiates screening test NEGATIVE NEGATIVE 01/14/2019 [facility] Barbiturates screen, urine NEGATIVE NEGATIVE 01/14/2019 [facility] Urine phencyclidine detection by screening method NEGATIVE NEGATIVE 01/14/2019 [facility] Urine amphetamines detection by screen method > 1000 ng/mL POSITIVE NEGATIVE 01/14/2019 [facility] Urine Methamphetamines Screen NEGATIVE NEGATIVE 01/14/2019 [facility] Urine benzodiazepines detection by screening method NEGATIVE NEGATIVE 01/14/2019 [facility] Urine cocaine measurement (mass/volume) POSITIVE NEGATIVE 01/14/2019 [facility] Urine cannabinoids detection by screening method POSITIVE NEGATIVE 01/14/2019 [facility] Urine methadone screen NEGATIVE NEGATIVE 01/14/2019 [facility] Amorphous sediment detection in urine sediment by light microscopy MODERATE FEW 01/14/2019 [facility] Urine human chorionic gonadotropin (hCG) detection NEGATIVE NEGATIVE 01/14/2019 [facility] Serum or plasma magnesium measurement (mass/volume) 2.2 1.3 - 2.1 01/14/2019 [facility] Serum or plasma creatine kinase measurement (enzymatic activity/volume) 86 29 - 168 01/14/2019 [facility] Serum or plasma creatine kinase MB measurement (mass/volume) 3.00 0 - 5.0 01/14/2019 [facility] Troponin I measurement by highly sensitive enzyme immunoassay 0.004 0 - 0.300 01/14/2019 [facility] Serum or plasma acetaminophen measurement by screening method (mass/volume) < 3 10 - 30 01/14/2019 [facility] Serum or plasma ethanol measurement (mass/volume) < 10.0 0.0 - 10.0 01/14/2019 [facility] Automated blood basophil count (count/volume) Automated blood basophil count (count/volume) 0.0 0.0 - 0.1 11/15/2017 [facility] Automated blood basophil count as percentage of total leukocytes Automated blood basophil count as percentage of total leukocytes 0.1 0.0 - 1.0 11/15/2017 [facility] Automated blood eosinophil count Automated blood eosinophil count 0.0 0.0 - 0.4 11/15/2017 [facility] Automated blood eosinophil count as percentage of total leukocytes Automated blood eosinophil count as percentage of total leukocytes 0.0 0.0 - 6.0 11/15/2017 [facility] Automated blood hematocrit (volume fraction) Automated blood hematocrit (volume fraction) 43.1 34.2 - 44.1 11/15/2017 [facility] Automated blood lymphocyte count as percentage ot total leukocytes Automated blood lymphocyte count as percentage ot total leukocytes 1.7 18.0 - 39.1 11/15/2017 [facility] Automated blood monocyte count as percentage of total leukocytes Automated blood monocyte count as percentage of total leukocytes 1.9 4.4 - 11.3 11/15/2017 [facility] Automated blood neutrophil count Automated blood neutrophil count 14.8 2.1 - 6.9 11/15/2017 [facility] Automated blood platelet count (count/volume) Automated blood platelet count (count/volume) 286 140 - 360 11/15/2017 [facility] Automated blood segmented neutrophil count as percentage of total leukocytes Automated blood segmented neutrophil count as percentage of total leukocytes 95.8 38.7 - 80.0 11/15/2017 [facility] Automated erythrocyte mean corpuscular hemoglobin (mass per erythrocyte) Automated erythrocyte mean corpuscular hemoglobin (mass per erythrocyte) 33.6 28 - 32 11/15/2017 [facility] Automated erythrocyte mean corpuscular hemoglobin concentration measurement (mass/volume) Automated erythrocyte mean corpuscular hemoglobin concentration measurement (mass/volume) 35.0 31 - 35 11/15/2017 [facility] Automated erythrocyte mean corpuscular volume Automated erythrocyte mean corpuscular volume 96.0 81 - 99 11/15/2017 [facility] Automated urine sediment leukocyte count by microscopy (number/high power field) Automated urine sediment leukocyte count by microscopy (number/high power field) <5 0 - 5 11/15/2017 [facility] Bacteria detection in urine sediment by light microscopy Bacteria detection in urine sediment by light microscopy NONE NONE 11/15/2017 [facility] Blood erythrocytes automated count (number/volume) Blood erythrocytes automated count (number/volume) 4.49 3.6 - 5.1 11/15/2017 [facility] Blood hemoglobin measurement (moles/volume) Blood hemoglobin measurement (moles/volume) 15.1 12.0 - 16.0 11/15/2017 [facility] Blood leukocytes automated count (number/volume) Blood leukocytes automated count (number/volume) 15.49 4.8 - 10.8 11/15/2017 [facility] Blood lymphocytes count (number/volume) Blood lymphocytes count (number/volume) 0.3 1.0 - 3.2 11/15/2017 [facility] Blood monocytes automated count (number/volume) Blood monocytes automated count (number/volume) 0.3 0.2 - 0.8 11/15/2017 [facility] Blood platelets count by estimate (number/volume) Blood platelets count by estimate (number/volume) ADEQUATE 11/15/2017 [facility] Epithelial cells detection in urine sediment by light microscopy Epithelial cells detection in urine sediment by light microscopy MODERATE NONE 11/15/2017 [facility] Erythrocytes detection in urine sediment by light microscopy Erythrocytes detection in urine sediment by light microscopy NONE 0 - 5 11/15/2017 [facility] Estimated glomerular filtration rate (GFR) determination Estimated glomerular filtration rate (GFR) determination >60 60 11/15/2017 [facility] Glucose measurement Glucose measurement 171 74 - 118 11/15/2017 [facility] Manual blood lymphocytes/100 leukocytes Manual blood lymphocytes/100 leukocytes 5 19 - 48 11/15/2017 [facility] Manual blood monocytes/100 leukocytes Manual blood monocytes/100 leukocytes 3 3.4 - 9.0 11/15/2017 [facility] Manual blood neutrophils/100 leukocytes Manual blood neutrophils/100 leukocytes 92 40 - 74 11/15/2017 [facility] Plasma globulin measurement (mass/volume) Plasma globulin measurement (mass/volume) 3.2 2.3 - 3.5 11/15/2017 [facility] Platelet morphology Platelet morphology NORMAL 11/15/2017 [facility] RBC morphology RBC morphology NORMAL 11/15/2017 [facility] Serum or plasma alanine aminotransferase measurement (enzymatic activity/volume) Serum or plasma alanine aminotransferase measurement (enzymatic activity/volume) 18 0 - 55 11/15/2017 [facility] Serum or plasma albumin measurement (mass/volume) Serum or plasma albumin measurement (mass/volume) 4.3 3.5 - 5.0 11/15/2017 [facility] Serum or plasma albumin/globulin mass ratio Serum or plasma albumin/globulin mass ratio 1.3 0.8 - 2.0 11/15/2017 [facility] Serum or plasma alkaline phosphatase measurement (enzymatic activity/volume) Serum or plasma alkaline phosphatase measurement (enzymatic activity/volume) 72 40 - 150 11/15/2017 [facility] Serum or plasma amylase measurement (enzymatic activity/volume) Serum or plasma amylase measurement (enzymatic activity/volume) 42 25 - 125 11/15/2017 [facility] Serum or plasma anion gap Serum or plasma anion gap 14.3 8 - 16 11/15/2017 [facility] Serum or plasma calcium measurement (mass/volume) Serum or plasma calcium measurement (mass/volume) 9.1 8.4 - 10.2 11/15/2017 [facility] Serum or plasma carbon dioxide, total measurement (moles/volume) Serum or plasma carbon dioxide, total measurement (moles/volume) 22 22 - 29 11/15/2017 [facility] Serum or plasma chloride measurement (moles/volume) Serum or plasma chloride measurement (moles/volume) 107 98 - 107 11/15/2017 [facility] Serum or plasma choriogonadotropin ( test) detection Serum or plasma choriogonadotropin ( test) detection NEGATIVE NEGATIVE 11/15/2017 [facility] Serum or plasma creatine kinase MB measurement (mass/volume) Serum or plasma creatine kinase MB measurement (mass/volume) 2.20 0.00 - 5.00 11/15/2017 [facility] Serum or plasma creatine kinase measurement (enzymatic activity/volume) Serum or plasma creatine kinase measurement (enzymatic activity/volume) 80 29 - 168 11/15/2017 [facility] Serum or plasma creatinine measurement (mass/volume) Serum or plasma creatinine measurement (mass/volume) 0.79 0.57 - 1.11 11/15/2017 [facility] Serum or plasma lipase measurement (enzymatic activity/volume) Serum or plasma lipase measurement (enzymatic activity/volume) 15 8 - 78 11/15/2017 [facility] Serum or plasma potassium measurement (moles/volume) Serum or plasma potassium measurement (moles/volume) 4.3 3.5 - 5.1 11/15/2017 [facility] Serum or plasma protein measurement (mass/volume) Serum or plasma protein measurement (mass/volume) 7.5 6.5 - 8.1 11/15/2017 [facility] Serum or plasma sodium measurement (moles/volume) Serum or plasma sodium measurement (moles/volume) 139 136 - 145 11/15/2017 [facility] Serum or plasma total bilirubin measurement (mass/volume) Serum or plasma total bilirubin measurement (mass/volume) 1.0 0.2 - 1.2 11/15/2017 [facility] Serum or plasma troponin i.cardiac measurement by detection limit <=0.01 NG/ml (mass/volume) Serum or plasma troponin i.cardiac measurement by detection limit <=0.01 NG/ml (mass/volume) <0.001 0 - 0.300 11/15/2017 [facility] Serum or plasma urea nitrogen measurement (mass/volume) Serum or plasma urea nitrogen measurement (mass/volume) 18 7 - 26 11/15/2017 [facility] Serum or plasma urea nitrogen/creatinine mass ratio Serum or plasma urea nitrogen/creatinine mass ratio 23 6 - 25 11/15/2017 [facility] Specific gravity of Urine by Test strip Specific gravity of Urine by Test strip 1.025 1.010 - 1.025 11/15/2017 [facility] Urine clarity Urine clarity HAZY CLEAR 11/15/2017 [facility] Urine color determination Urine color determination YELLOW YELLOW 11/15/2017 [facility] Urine erythrocytes detection Urine erythrocytes detection 3+ NEGATIVE 11/15/2017 [facility] Urine glucose detection Urine glucose detection NEGATIVE NEGATIVE 11/15/2017 [facility] Urine human chorionic gonadotropin (hCG) detection Urine human chorionic gonadotropin (hCG) detection NEGATIVE NEGATIVE 11/15/2017 [facility] Urine ketones detection by automated test strip Urine ketones detection by automated test strip 3+ NEGATIVE 11/15/2017 [facility] Urine leukocyte esterase detection by dipstick Urine leukocyte esterase detection by dipstick NEGATIVE NEGATIVE 11/15/2017 [facility] Urine nitrite detection Urine nitrite detection NEGATIVE NEGATIVE 11/15/2017 [facility] Urine pH measurement by automated test strip Urine pH measurement by automated test strip 6 5 - 7 11/15/2017 [facility] Urine protein measurement by test strip (mass/volume) Urine protein measurement by test strip (mass/volume) NEGATIVE NEGATIVE 11/15/2017 [facility] Urine total bilirubin measurement (mass/volume) Urine total bilirubin measurement (mass/volume) NEGATIVE NEGATIVE 11/15/2017 [facility] Urine urobilinogen measurement by test strip (mass/volume) Urine urobilinogen measurement by test strip (mass/volume) 0.2 0.2 - 1 11/15/2017 [facility] Red Cell Distribution Width 12.2 11.7 - 14.4 11/15/2017 [facility] IM GRANULOCYTES % 0.5 0.0 - 1.0 11/15/2017 [facility] Absolute Immature Granulocyte (auto 0.07 0 - 0.1 11/15/2017 [facility] Differential Total Cells Counted 100 11/15/2017 [facility] Aspartate Amino Transf (AST/SGOT) 16 5 - 34 11/15/2017 [facility] Activated partial thromboplastin time (aPTT) in platelet poor plasma bycoagulation assay Activated partial thromboplastin time (aPTT) in platelet poor plasma bycoagulation assay 27.0 23.8 - 35.5 09/24/2017 [facility] INR in Platelet poor plasma by Coagulation assay INR in Platelet poor plasma by Coagulation assay 0.90 09/24/2017 [facility] Prothrombin time (PT) in platelet poor plasma by coagulation assay Prothrombin time (PT) in platelet poor plasma by coagulation assay 10.2 11.9 - 14.5 09/24/2017 [facility] Serum or plasma acetaminophen measurement by screening method (mass/volume) Serum or plasma acetaminophen measurement by screening method (mass/volume) <3 10 - 30 09/24/2017 [facility] Serum or plasma magnesium measurement (mass/volume) Serum or plasma magnesium measurement (mass/volume) 2.1 1.3 - 2.1 09/24/2017 [facility] Serum or plasma salicylates measurement (mass/volume) Serum or plasma salicylates measurement (mass/volume) <5.0 0 - 30 09/24/2017 [facility] Serum or plasma thyrotropin measurement by detection limit <=0.005 miu/l (units/volume) Serum or plasma thyrotropin measurement by detection limit <=0.005 miu/l (units/volume) 0.860 0.350 - 4.940 09/24/2017 [facility] B-Type Natriuretic Peptide 88.7 0 - 100 09/24/2017 [facility] Amorphous sediment detection in urine sediment by light microscopy Amorphous sediment detection in urine sediment by light microscopy MODERATE FEW 09/24/2017 [facility] Clostridium difficile A and B toxin assay Clostridium difficile A and B toxin assay NEGATIVE NEGATIVE 03/17/2017 [facility] Stool calprotectin measurement (mass/mass) Stool calprotectin measurement (mass/mass) <16 0 - 120 03/17/2017 [facility] Stool lactoferrin detection Stool lactoferrin detection NEGATIVE NEGATIVE 03/17/2017 [facility] Bacterial blood culture Bacterial blood culture Organism: STAPHYLOCOCCUS SP COAG NEG 03/16/2017 [facility] Blood culture Blood culture Growth detected. Culture workup ordered. 03/16/2017 [facility] Pathology Reports No Data Provided for [...] Date DC Date Status Source Discharged Inpatient [id number] TATYANA RAM MD 03/16/2017 03/19/2017 [facility] Departed Emergency Room [id number] SADI MUSTAFA MD 08/09/2017 08/09/2017 [facility] Discharged Inpatient [id number] TATYANA RAM MD 09/28/2017 09/28/2017 [facility] Departed Emergency Room [id number] SADI MUSTAFA MD 11/15/2017 11/15/2017 [facility] Departed Emergency Room [id number] CINDY JURADO MD 01/14/2019 01/14/2019 [facility] Departed Emergency Room [id number] CINDY JURADO MD 01/15/2019 01/15/2019 [facility] Discharged Inpatient (obs) [id number] TATYANA RAM MD 01/16/2019 01/19/2019 [facility] Procedures Procedure Code Date Perfomer Comments Source EGD with biopsy [id number] 01/18/2019 [facility] Computed tomography of abdomen and pelvis with contrast [id number] 01/14/2019 [facility] DILATION OF STOMACH, PYLORUS, ENDO [id number] 09/27/2017 [facility] EXCISION OF STOMACH, PYLORUS, ENDO, DIAGN [id number] 09/27/2017 [facility] APPLICATION LOWER LEG SPLINT [id number] 08/09/2017 [facility] EXCISION OF STOMACH, ENDO, DIAGN [id number] 03/17/2017 [facility] EXCISION OF RECTUM, ENDO, DIAGN [id number] 03/17/2017 [facility] EXCISION OF DESCENDING COLON, ENDO, DIAGN [id number] 03/17/2017 [facility] Assessment and Plan No Data Provided for This Section Plan of Care Plan of Care Date Source Discharge Date 01/19/19 11:34am Disposition HOME, SELF-CARE Instructions/Education Provided Abdominal Pain - Adult Prescriptions See Medication Section Referrals AZUL APARICIO MD (Gastroenterology) Order Date: 2 Weeks Entered Date: 01/19/2019 11:26am Address: [address] [place] [id number] Additional Instructions/Education FOLLOW-UP WITH PCP AND GI. 01/19/2019 [facility] Discharge Date 11/15/17 6:40pm Disposition HOME, SELF-CARE Condition at Discharge Stable Instructions/Education Provided Abdominal Pain - Adult Forms Provided Work/School Excuse Prescriptions See Medication Section Referrals AZUL APARICIO MD Order Date: Call for an appointment Address: [address] [place] [address] FRANCK OROZCO Order Date: Call for an appointment Address: [address] [place], [place] [id number] Additional Instructions/Education 1. follow up with gi doctor in 1-2 days without fail 2. return to ed as needed 3. increase oral fluids 11/15/2017 [facility] Social History Social History Date Source [...] Date Current every day smoker 01/19/2019 [facility] Family History No Data Provided for This Section Advance Directives Order Name Results Value Date Source Advance Directives Advance Directives Directive Response Recorded Date/Time Does the patient have an advance directive? No 01/16/19 9:00pm If yes, is advance directive on file with [facility]? No 01/16/19 9:00pm If not on file with [facility] will patient provide a copy? No 01/16/19 9:00pm Do you have a Directive to Physician? No 01/16/19 6:08pm Do you have a Medical Power of [employer]? No 01/16/19 6:08pm Do you have an [...] and responsibilities? No 01/16/19 6:08pm 01/19/2019 [facility] Advance Directives Advance Directives Directive Response Recorded Date/Time Does the patient have an advance directive? No 09/24/17 1:40pm If yes, is advance directive on file with [facility]? No 09/24/17 1:40pm If not on file with [facility] will patient provide a copy? No 09/24/17 1:40pm Do you have a Directive to Physician? No 11/15/17 4:11pm Do you have a Medical Power of [employer]? No 11/15/17 4:11pm Do you have an [...] and responsibilities? Yes 11/15/17 4:11pm 11/15/2017 [facility] Functional Status No Data Provided for This Section
[2019-06-12] MEDS: MORPHINE SULFATE 2 MG/ML SYR 1ML IV PRN ×2 (13:39→17:41)
[2019-06-12] MEDS: SODIUM CHLORIDE 0.9% 1000ML 1,000 ML IV SCH ×2 (13:39→19:57)
[2019-06-12] MEDS: PROMETHAZINE HCL (IM) 25 MG/ML VIAL IV PRN ×3 (13:39→23:45)
[2019-06-12 14:22] VITALS: BP 138/67
[2019-06-12 14:53] VITALS: BP 138/67
--- NOTE | 2019-06-12 15:45 | NUR ---
Dr. Craig is here making rounds. Notified him that patient has been bradycardia. No new orders received.
[2019-06-12 15:55] VITALS: BP 122/75
[2019-06-12] MEDS ORDERED: SODIUM CHLORIDE 0.9% 50ML 50 ML ONE ×3 (18:20→23:17)
[2019-06-12] MEDS ORDERED: IOPAMIDOL 370 MG/ML 200 ML INFUS..BTL INJ ONE (18:20)
[2019-06-12 20:00] VITALS: BP 127/87
[2019-06-12 21:00] VITALS: BP 127/87
--- NOTE | 2019-06-12 22:24 | History and Physical ---
CLINICAL HISTORY: This is a 43-year-old white woman with history of epigastric pain due to gastritis, esophagitis, and hiatal hernia, previously followed by Dr. Mani Garcia and previously admitted in January for the same, admitted via the emergency room because of epigastric pain since this morning associated with persistent vomiting and retching. This patient has history of ADHD, obsessive compulsive syndrome as well as cocaine and marijuana use, however, she said she has not used cocaine and marijuana for months. She is status post cholecystectomy. PAST MEDICAL HISTORY: Remarkable for the above-mentioned conditions. She denies any diabetes, hypertension, hyperlipidemia. PAST SURGICAL HISTORY: Cholecystectomy, hemorrhoidectomy, section x2, tubal ligation, polypectomy, carpal tunnel surgery. PERSONAL AND SOCIAL HISTORY: She has history of cocaine and marijuana abuse. FAMILY HISTORY: Father from brain cancer. Mother is alive and well. She is the only child. REVIEW OF SYSTEMS: Noncontributory. PHYSICAL EXAMINATION: GENERAL: She is alert, sedated, arousable. CARDIAC: Jugular veins were nondistended. S1, S2, are regular. There is no appreciable murmur. LUNGS: Clear. ABDOMEN: Soft. Has epigastric tenderness. There is no rebound or guarding. EXTREMITIES: Show no cyanosis, clubbing, or edema. LABORATORY STUDIES: CT scan is unremarkable. The white count is 11,000. Electrolytes are normal. Amylase and lipase are normal. IMPRESSION: 1. Recurrent epigastric pain and tenderness with history of gastritis, esophagitis, and hiatal hernia. 2. History of drug abuse. 3. Obsessive compulsive syndrome. 4. Attention deficit hyperactivity disorder. RECOMMENDATIONS: GI consultation, symptomatic management. MD ZACARIAS Rasmussen/MODL /[id number] cc: MD Mani Baron MD
[2019-06-13] VITALS (8 sets, daily range): BP systolic 110–143; BP diastolic 62–88
[2019-06-13] MEDS: PANTOPRAZOLE 40 MG 10ML VIAL IV SCH ×2 (02:35→14:31)
[2019-06-13] MEDS: ONDANSETRON HCL INJ 2MG/ML 2ML 2 MG/ML VIAL IV PRN ×3 (04:25→14:31)
[2019-06-13] MEDS: MORPHINE SULFATE 2 MG/ML SYR 1ML IV PRN ×3 (04:25→14:31)
[2019-06-13] MEDS: SODIUM CHLORIDE 0.9% 1000ML 1,000 ML IV SCH ×3 (04:25→21:23)
[2019-06-13] MEDS: METOCLOPRAMIDE HCL 10 MG/2ML VIAL IV SCH ×4 (05:09→23:35)
[2019-06-13 06:58] LABS: BASOPHILS % 0.2 % (0.0-1.0); HEMATOCRIT 39.8 % (34.2-44.1); HEMOGLOBIN 13.5 g/dL (12.0-16.0); LYMPHOCYTES # (AUTO) 1.2 (1.0-3.2); LYMPHOCYTES % 10.6 % (18.0-39.1); MEAN CORPUSCULAR HEMOGLOBIN 33.4 pg (28-32); MEAN CORPUSCULAR HGB CONC 33.9 g/dL (31-35); MEAN CORPUSCULAR VOLUME 98.5 fL (81-99); MONOCYTES # (AUTO) 0.8 (0.2-0.8); MONOCYTES % 7.1 % (4.4-11.3); NEUTROPHILS # (AUTO) 9.1 (2.1-6.9); NEUTROPHILS % 81.5 % (38.7-80.0); PLATELET COUNT 245 x10e3/uL (140-360); RED BLOOD COUNT 4.04 x10e6/uL (3.6-5.1); RED CELL DISTRIBUTION WIDTH 12.8 % (11.7-14.4)
--- NOTE | 2019-06-13 07:00 | NUR ---
received am report from LOPEZ,RN and morning rounds done. pt is alert resting in bed, no s/s of distress. call light within reach and instructed pt to call RN for help. no complaints from pt at this time
[2019-06-13 07:11] LABS: ALANINE AMINOTRANSFERASE 11 IU/L (0-55); ALBUMIN 3.5 g/dL (3.5-5.0); ALBUMIN/GLOBULIN RATIO 1.3 (0.8-2.0); ALKALINE PHOSPHATASE 62 IU/L (40-150); ANION GAP 14.2 mmol/L (8-16); BLOOD UREA NITROGEN 7 mg/dL (7-26); BUN/CREATININE RATIO 10 (6-25); CALCIUM 9.1 mg/dL (8.4-10.2); CARBON DIOXIDE 22 mmol/L (22-29); CHLORIDE 105 mmol/L (98-107); CREATININE, SERUM 0.68 mg/dL (0.57-1.11); EST GLOMERULAR FILTRATION RATE > 60 ML/MIN (60-); GLUCOSE 104 mg/dL (74-118); POTASSIUM 4.2 mmol/L (3.5-5.1); SODIUM 137 mmol/L (136-145)
[2019-06-13] MEDS: SUCRALFATE 1 GM TAB PO SCH ×4 (08:25→21:23)
[2019-06-13] MEDS ORDERED: PANTOPRAZOLE 40 MG 10ML VIAL IV SCH (09:00)
[2019-06-13] MEDS ORDERED: ZOLPIDEM TARTRATE 5 MG TAB PO ONE (20:30)
[2019-06-14] VITALS: BP 106/71
[2019-06-14] MEDS: PANTOPRAZOLE 40 MG 10ML VIAL IV SCH (03:21)
[2019-06-14 04:00] VITALS: BP 113/71
[2019-06-14] MEDS: SODIUM CHLORIDE 0.9% 1000ML 1,000 ML IV SCH (05:30)
[2019-06-14] MEDS: METOCLOPRAMIDE HCL 10 MG/2ML VIAL IV SCH (05:30)
--- NOTE | 2019-06-14 07:00 | NUR ---
BEDSIDE SHIFT REPORT RECEIVED FROM THE CONSTRUCTION TREN[employer] DIGGER RN. PT FAMILY AT BEDSIDE. PT DENIES NEEDS AT THIS TIME.
[2019-06-14] MEDS: SUCRALFATE 1 GM TAB PO SCH (08:03)
[2019-06-14 08:18] VITALS: BP 124/82
[2019-06-14 08:30] VITALS: BP 124/82
--- NOTE | 2019-06-14 11:05 | NUR ---
D/C PT PER DR. FRANCO. PAGED DR. Rakesh APARICIO TO INFORM PT D/C.
--- NOTE | 2019-06-14 11:06 | NUR ---
PAGED DR. Rakesh APARICIO OFFICE AND CELL PHONE. UNABLE TO LEFT MESSAGE. VOICE MAIL BOX FULL.
[2019-06-14 11:53] VITALS: BP 136/79
--- NOTE | 2019-06-14 12:02 | NUR ---
PT DISCHARGED HOME SAFELY WITH FAMILY. PT ESCORTED TO FRONT ENTRANCE. RFA 20G IV REMOVED. TIP INTACT. NO BLEEDING NOTED. DRESSING APPLIED. PT DENIED FURTHER NEEDS.
[2019-06-14] MEDS ORDERED: CARAFATE1 GM PO (16:59)
[2019-06-14] MEDS ORDERED: PROTONIX40 MG PO (16:59)
[2019-06-14] MEDS ORDERED: ONDANSETRON ODT8 MG PO (16:59)
--- NOTE | 2019-06-14 19:56 | Discharge Summary ---
Ms. Vizcarra is a pleasant 43-year-old woman with multiple allergic problems and previous problems with abdominal discomfort, nausea, and vomiting. HOSPITAL COURSE: She presented on the with a complaint that she thinks that maybe food had upset her stomach. She reports she is allergic to strawberries, chocolate, and other things. She was given IV fluids and antiemetics, and made gradual progress. Today, she is comfortable, taking oral nutrition. No pain. No nausea. Has not vomited in over 24 hours. Her abdomen normal bowel sounds. Nontender. It is felt that this episode is resolved. Etiology may be allergic, but she has returned to her baseline status. She reports she has Phenergan at home and Carafate and Protonix. She is discharged. Continue her previous home medications including Adderall. DISCHARGE DIAGNOSES: 1. Nausea and vomiting. 2. Multiple allergies. 3. Attention deficit hyperactivity disorder. She will follow with Dr. Flavio Goldberg in one week and Dr. Mani Garcia as needed. MD DAVID Del Toro/KELSEY /[id number] cc: MD Flavio Ortiz
== END 2019-06-14 12:00 | disposition home or self-care (01) ==
LOC: ER 09:38 → ERHOLD 13:00 → MED/SURG2 14:08
PROVIDERS: ADMIT Internal Medicine; ATTEND Internal Medicine
DX: E86.0 Dehydration (principal); K29.20 Alcoholic gastritis without bleeding; F10.10 Alcohol abuse, uncomplicated; F17.210 Nicotine dependence, cigarettes, uncomplicated; Z91.018 Allergy to other foods; K44.9 Diaphragmatic hernia without obstruction or gangrene; F90.9 Attention-deficit hyperactivity disorder, unspecified type; F42.9 Obsessive-compulsive disorder, unspecified; Z90.49 Acquired absence of other specified parts of digestive tract; F14.11 Cocaine abuse, in remission; F12.11 Cannabis abuse, in remission
CPT/HCPCS: 36415 ×2; 74177; 80053 ×2; 81001; 81025; 82150; 83690; 85025 ×2; 93005; 99284; C9113 ×3; G0378 ×3; J2270 ×2; J2405 ×2; J2550; J2765 ×3; J7030 ×3; Q9967

== ENCOUNTER 2019-06-14 13:42 | Emergency (ER) | payer BC ==
[~2019-06-14] VITALS: Ht 175.3 cm; Wt 77.1 kg
--- OUTSIDE RECORDS SUMMARY | 2019-06-14 13:46 | XMS REPORT | Continuity of Care Document ---
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 Phone [facility] [place] Unavailable Unavailable Problems Problem Status Onset Date Classification Date Reported Comments Source Abdominal pain Active Problem 01/19/2019 [facility] Colitis Active Problem 01/19/2019 [facility] Gastritis Active Problem 01/19/2019 [facility] Sprain of left ankle Active Problem 01/19/2019 [facility] Vomiting Active Problem 01/19/2019 [facility] Medications Medication Details Route Status Patient Instructions Ordering Provider Order Date Source Sucralfate 1 Gm Tablet Before Meals And At Bedtime Active Reedy 01/19/2019 [facility] Pantoprazole Sodium (Protonix) 40 Mg Tablet. Twice A Day Active Reedy 03/19/2017 [facility] Ciprofloxacin Hcl (Cipro) 500 Mg Tablet, 500 Mg Oral Daily Active 03/19/2017 [facility] Dicyclomine Hcl (Bentyl) 10 Mg Capsule, 10 Mg Oral Three Times A Day Active Reedy 03/19/2017 [facility] Metronidazole (Flagyl) 250 Mg Tablet, 500 Mg Oral Every 8 Hours Active 03/19/2017 [facility] Promethazine Hcl (Phenergan Supp*) 25 Mg Supp, 1 Supp Rectal Every 8 Hours as needed for Vomiting Active 03/19/2017 [facility] Pantoprazole Sodium (Protonix) 40 Mg Tablet. Twice A Day Active Reedy 03/19/2017 [facility] Ciprofloxacin Hcl (Cipro) 500 Mg Tablet, 500 Mg Oral Daily Active 03/19/2017 [facility] Dicyclomine Hcl (Bentyl) 10 Mg Capsule, 10 Mg Oral Three Times A Day Active Reedy 03/19/2017 [facility] Metronidazole (Flagyl) 250 Mg Tablet, 500 Mg Oral Every 8 Hours Active 03/19/2017 [facility] Promethazine Hcl (Phenergan Supp*) 25 Mg Supp, 1 Supp Rectal Every 8 Hours as needed for Vomiting Active 03/19/2017 [facility] Amphet Asp/Amphet/D-Amphet (Adderall Xr 30 Mg Capsule) 30 Mg Cap.er.24h, 30 Mg Oral Twice A Day Active 03/16/2017 [facility] Naproxen 500 Mg Tablet., 500 Mg Oral Twice A Day Active 03/16/2017 [facility] Amphet Asp/Amphet/D-Amphet (Adderall Xr 30 Mg Capsule) 30 Mg Cap.er.24h, 30 Mg Oral Twice A Day Active 03/16/2017 [facility] Naproxen 500 Mg Tablet., 500 Mg Oral Twice A Day Active 03/16/2017 [facility] Amphet Asp/Amphet/D-Amphet (Adderall 30 Mg Tablet) 30 Mg Tablet Daily Active [facility] Ondansetron (Zofran Odt) 4 Mg Tab.rapdis Every 6 Hours as needed for Vomiting Active [facility] Amphet Asp/Amphet/D-Amphet (Adderall 30 Mg Tablet) 30 Mg Tablet Daily Active [facility] Ondansetron (Zofran Odt) 4 Mg Tab.rapdis Every 6 Hours as needed for Vomiting Active [facility] Allergies, Adverse Reactions, Alerts Substance Category Reaction Severity Reaction type Status Date Reported Comments Source STRAWBERRIES RED SPOTS Mild Allergy to Substance Active 11/16/2013 [facility] Immunizations No Data Provided for This Section Results Order Name Results Value Reference Range Date Interpretation Comments Source Blood leukocytes automated count (number/volume) 8.87 4.8 - 10.8 01/17/2019 [facility] Blood erythrocytes automated count (number/volume) 4.35 3.6 - 5.1 01/17/2019 [facility] Blood hemoglobin measurement (moles/volume) 14.3 12.0 - 16.0 01/17/2019 [facility] Automated blood hematocrit (volume fraction) 41.3 34.2 - 44.1 01/17/2019 [facility] Automated erythrocyte mean corpuscular volume 94.9 81 - 99 01/17/2019 [facility] Automated erythrocyte mean corpuscular hemoglobin (mass per erythrocyte) 32.9 28 - 32 01/17/2019 [facility] Automated erythrocyte mean corpuscular hemoglobin concentration measurement (mass/volume) 34.6 31 - 35 01/17/2019 [facility] RDW BldCo-Rto 12.3 11.7 - 14.4 01/17/2019 [facility] Automated blood platelet count (count/volume) 248 140 - 360 01/17/2019 [facility] Automated blood segmented neutrophil count as percentage of total leukocytes 66.1 38.7 - 80.0 01/17/2019 [facility] Automated blood lymphocyte count as percentage ot total leukocytes 24.2 18.0 - 39.1 01/17/2019 [facility] Automated blood monocyte count as percentage of total leukocytes 9.0 4.4 - 11.3 01/17/2019 [facility] Automated blood eosinophil count as percentage of total leukocytes 0.1 0.0 - 6.0 01/17/2019 [facility] Automated blood basophil count as percentage of total leukocytes 0.3 0.0 - 1.0 01/17/2019 [facility] IM GRANULOCYTES % 0.3 0.0 - 1.0 01/17/2019 [facility] Automated blood neutrophil count 5.9 2.1 - 6.9 01/17/2019 [facility] Blood lymphocytes count (number/volume) 2.2 1.0 - 3.2 01/17/2019 [facility] Blood monocytes automated count (number/volume) 0.8 0.2 - 0.8 01/17/2019 [facility] Automated blood eosinophil count 0.0 0.0 - 0.4 01/17/2019 [facility] Automated blood basophil count (count/volume) 0.0 0.0 - 0.1 01/17/2019 [facility] Absolute Immature Granulocyte (auto 0.03 0 - 0.1 01/17/2019 [facility] Serum or plasma sodium measurement (moles/volume) 138 136 - 145 01/17/2019 [facility] Serum or plasma potassium measurement (moles/volume) 3.7 3.5 - 5.1 01/17/2019 [facility] Serum or plasma chloride measurement (moles/volume) 109 98 - 107 01/17/2019 [facility] Serum or plasma carbon dioxide, total measurement (moles/volume) 23 22 - 29 01/17/2019 [facility] Serum or plasma anion gap 9.7 8 - 16 01/17/2019 [facility] Serum or plasma urea nitrogen measurement (mass/volume) 11 7 - 26 01/17/2019 [facility] Serum or plasma creatinine measurement (mass/volume) 0.67 0.57 - 1.11 01/17/2019 [facility] Serum or plasma urea nitrogen/creatinine mass ratio 16 6 - 25 01/17/2019 [facility] Estimated glomerular filtration rate (GFR) determination > 60 60 01/17/2019 [facility] Glucose measurement 103 74 - 118 01/17/2019 [facility] Serum or plasma calcium measurement (mass/volume) 8.5 8.4 - 10.2 01/17/2019 [facility] Serum or plasma total bilirubin measurement (mass/volume) 0.8 0.2 - 1.2 01/17/2019 [facility] Aspartate Amino Transf (AST/SGOT) 11 5 - 34 01/17/2019 [facility] Serum or plasma alanine aminotransferase measurement (enzymatic activity/volume) 9 0 - 55 01/17/2019 [facility] Serum or plasma protein measurement (mass/volume) 5.9 6.5 - 8.1 01/17/2019 [facility] Serum or plasma albumin measurement (mass/volume) 3.2 3.5 - 5.0 01/17/2019 [facility] Plasma globulin measurement (mass/volume) 2.7 2.3 - 3.5 01/17/2019 [facility] Serum or plasma albumin/globulin mass ratio 1.2 0.8 - 2.0 01/17/2019 [facility] Serum or plasma alkaline phosphatase measurement (enzymatic activity/volume) 56 40 - 150 01/17/2019 [facility] Serum or plasma amylase measurement (enzymatic activity/volume) 68 25 - 125 01/16/2019 [facility] Serum or plasma lipase measurement (enzymatic activity/volume) 33 8 - 78 01/16/2019 [facility] Urine color determination YELLOW YELLOW 01/16/2019 [facility] Urine clarity CLOUDY CLEAR 01/16/2019 [facility] Specific gravity of Urine by Test strip 1.020 1.010 - 1.025 01/16/2019 [facility] Urine pH measurement by automated test strip 7 5 - 7 01/16/2019 [facility] Urine leukocyte esterase detection by dipstick TRACE NEGATIVE 01/16/2019 [facility] Urine nitrite detection NEGATIVE NEGATIVE 01/16/2019 [facility] Urine protein measurement by test strip (mass/volume) 2+ NEGATIVE 01/16/2019 [facility] Urine glucose detection NEGATIVE NEGATIVE 01/16/2019 [facility] Urine ketones detection by automated test strip 3+ NEGATIVE 01/16/2019 [facility] Urine urobilinogen measurement by test strip (mass/volume) 1 0.2 - 1 01/16/2019 [facility] Urine total bilirubin measurement (mass/volume) 1+ NEGATIVE 01/16/2019 [facility] Urine erythrocytes detection NEGATIVE NEGATIVE 01/16/2019 [facility] Automated urine sediment leukocyte count by microscopy (number/high power field) 0-5 0 - 5 01/16/2019 [facility] Erythrocytes detection in urine sediment by light microscopy NONE 0 - 5 01/16/2019 [facility] Bacteria detection in urine sediment by light microscopy RARE NONE 01/16/2019 [facility] Epithelial cells detection in urine sediment by light microscopy MANY NONE 01/16/2019 [facility] Calcium oxalate crystals detection in urine sediment by light microscopy MODERATE FEW 01/16/2019 [facility] Prothrombin time (PT) in platelet poor plasma by coagulation assay 12.6 11.9 - 14.5 01/14/2019 [facility] INR in Platelet poor plasma by Coagulation assay 0.90 01/14/2019 [facility] Activated partial thromboplastin time (aPTT) in platelet poor plasma bycoagulation assay 24.1 23.8 - 35.5 01/14/2019 [facility] Urine opiates screening test NEGATIVE NEGATIVE 01/14/2019 [facility] Barbiturates screen, urine NEGATIVE NEGATIVE 01/14/2019 [facility] Urine phencyclidine detection by screening method NEGATIVE NEGATIVE 01/14/2019 [facility] Urine amphetamines detection by screen method > 1000 ng/mL POSITIVE NEGATIVE 01/14/2019 [facility] Urine Methamphetamines Screen NEGATIVE NEGATIVE 01/14/2019 [facility] Urine benzodiazepines detection by screening method NEGATIVE NEGATIVE 01/14/2019 [facility] Urine cocaine measurement (mass/volume) POSITIVE NEGATIVE 01/14/2019 [facility] Urine cannabinoids detection by screening method POSITIVE NEGATIVE 01/14/2019 [facility] Urine methadone screen NEGATIVE NEGATIVE 01/14/2019 [facility] Amorphous sediment detection in urine sediment by light microscopy MODERATE FEW 01/14/2019 [facility] Urine human chorionic gonadotropin (hCG) detection NEGATIVE NEGATIVE 01/14/2019 [facility] Serum or plasma magnesium measurement (mass/volume) 2.2 1.3 - 2.1 01/14/2019 [facility] Serum or plasma creatine kinase measurement (enzymatic activity/volume) 86 29 - 168 01/14/2019 [facility] Serum or plasma creatine kinase MB measurement (mass/volume) 3.00 0 - 5.0 01/14/2019 [facility] Troponin I measurement by highly sensitive enzyme immunoassay 0.004 0 - 0.300 01/14/2019 [facility] Serum or plasma acetaminophen measurement by screening method (mass/volume) < 3 10 - 30 01/14/2019 [facility] Serum or plasma ethanol measurement (mass/volume) < 10.0 0.0 - 10.0 01/14/2019 [facility] Automated blood basophil count (count/volume) Automated blood basophil count (count/volume) 0.0 0.0 - 0.1 11/15/2017 [facility] Automated blood basophil count as percentage of total leukocytes Automated blood basophil count as percentage of total leukocytes 0.1 0.0 - 1.0 11/15/2017 [facility] Automated blood eosinophil count Automated blood eosinophil count 0.0 0.0 - 0.4 11/15/2017 [facility] Automated blood eosinophil count as percentage of total leukocytes Automated blood eosinophil count as percentage of total leukocytes 0.0 0.0 - 6.0 11/15/2017 [facility] Automated blood hematocrit (volume fraction) Automated blood hematocrit (volume fraction) 43.1 34.2 - 44.1 11/15/2017 [facility] Automated blood lymphocyte count as percentage ot total leukocytes Automated blood lymphocyte count as percentage ot total leukocytes 1.7 18.0 - 39.1 11/15/2017 [facility] Automated blood monocyte count as percentage of total leukocytes Automated blood monocyte count as percentage of total leukocytes 1.9 4.4 - 11.3 11/15/2017 [facility] Automated blood neutrophil count Automated blood neutrophil count 14.8 2.1 - 6.9 11/15/2017 [facility] Automated blood platelet count (count/volume) Automated blood platelet count (count/volume) 286 140 - 360 11/15/2017 [facility] Automated blood segmented neutrophil count as percentage of total leukocytes Automated blood segmented neutrophil count as percentage of total leukocytes 95.8 38.7 - 80.0 11/15/2017 [facility] Automated erythrocyte mean corpuscular hemoglobin (mass per erythrocyte) Automated erythrocyte mean corpuscular hemoglobin (mass per erythrocyte) 33.6 28 - 32 11/15/2017 [facility] Automated erythrocyte mean corpuscular hemoglobin concentration measurement (mass/volume) Automated erythrocyte mean corpuscular hemoglobin concentration measurement (mass/volume) 35.0 31 - 35 11/15/2017 [facility] Automated erythrocyte mean corpuscular volume Automated erythrocyte mean corpuscular volume 96.0 81 - 99 11/15/2017 [facility] Automated urine sediment leukocyte count by microscopy (number/high power field) Automated urine sediment leukocyte count by microscopy (number/high power field) <5 0 - 5 11/15/2017 [facility] Bacteria detection in urine sediment by light microscopy Bacteria detection in urine sediment by light microscopy NONE NONE 11/15/2017 [facility] Blood erythrocytes automated count (number/volume) Blood erythrocytes automated count (number/volume) 4.49 3.6 - 5.1 11/15/2017 [facility] Blood hemoglobin measurement (moles/volume) Blood hemoglobin measurement (moles/volume) 15.1 12.0 - 16.0 11/15/2017 [facility] Blood leukocytes automated count (number/volume) Blood leukocytes automated count (number/volume) 15.49 4.8 - 10.8 11/15/2017 [facility] Blood lymphocytes count (number/volume) Blood lymphocytes count (number/volume) 0.3 1.0 - 3.2 11/15/2017 [facility] Blood monocytes automated count (number/volume) Blood monocytes automated count (number/volume) 0.3 0.2 - 0.8 11/15/2017 [facility] Blood platelets count by estimate (number/volume) Blood platelets count by estimate (number/volume) ADEQUATE 11/15/2017 [facility] Epithelial cells detection in urine sediment by light microscopy Epithelial cells detection in urine sediment by light microscopy MODERATE NONE 11/15/2017 [facility] Erythrocytes detection in urine sediment by light microscopy Erythrocytes detection in urine sediment by light microscopy NONE 0 - 5 11/15/2017 [facility] Estimated glomerular filtration rate (GFR) determination Estimated glomerular filtration rate (GFR) determination >60 60 11/15/2017 [facility] Glucose measurement Glucose measurement 171 74 - 118 11/15/2017 [facility] Manual blood lymphocytes/100 leukocytes Manual blood lymphocytes/100 leukocytes 5 19 - 48 11/15/2017 [facility] Manual blood monocytes/100 leukocytes Manual blood monocytes/100 leukocytes 3 3.4 - 9.0 11/15/2017 [facility] Manual blood neutrophils/100 leukocytes Manual blood neutrophils/100 leukocytes 92 40 - 74 11/15/2017 [facility] Plasma globulin measurement (mass/volume) Plasma globulin measurement (mass/volume) 3.2 2.3 - 3.5 11/15/2017 [facility] Platelet morphology Platelet morphology NORMAL 11/15/2017 [facility] RBC morphology RBC morphology NORMAL 11/15/2017 [facility] Serum or plasma alanine aminotransferase measurement (enzymatic activity/volume) Serum or plasma alanine aminotransferase measurement (enzymatic activity/volume) 18 0 - 55 11/15/2017 [facility] Serum or plasma albumin measurement (mass/volume) Serum or plasma albumin measurement (mass/volume) 4.3 3.5 - 5.0 11/15/2017 [facility] Serum or plasma albumin/globulin mass ratio Serum or plasma albumin/globulin mass ratio 1.3 0.8 - 2.0 11/15/2017 [facility] Serum or plasma alkaline phosphatase measurement (enzymatic activity/volume) Serum or plasma alkaline phosphatase measurement (enzymatic activity/volume) 72 40 - 150 11/15/2017 [facility] Serum or plasma amylase measurement (enzymatic activity/volume) Serum or plasma amylase measurement (enzymatic activity/volume) 42 25 - 125 11/15/2017 [facility] Serum or plasma anion gap Serum or plasma anion gap 14.3 8 - 16 11/15/2017 [facility] Serum or plasma calcium measurement (mass/volume) Serum or plasma calcium measurement (mass/volume) 9.1 8.4 - 10.2 11/15/2017 [facility] Serum or plasma carbon dioxide, total measurement (moles/volume) Serum or plasma carbon dioxide, total measurement (moles/volume) 22 22 - 29 11/15/2017 [facility] Serum or plasma chloride measurement (moles/volume) Serum or plasma chloride measurement (moles/volume) 107 98 - 107 11/15/2017 [facility] Serum or plasma choriogonadotropin ( test) detection Serum or plasma choriogonadotropin ( test) detection NEGATIVE NEGATIVE 11/15/2017 [facility] Serum or plasma creatine kinase MB measurement (mass/volume) Serum or plasma creatine kinase MB measurement (mass/volume) 2.20 0.00 - 5.00 11/15/2017 [facility] Serum or plasma creatine kinase measurement (enzymatic activity/volume) Serum or plasma creatine kinase measurement (enzymatic activity/volume) 80 29 - 168 11/15/2017 [facility] Serum or plasma creatinine measurement (mass/volume) Serum or plasma creatinine measurement (mass/volume) 0.79 0.57 - 1.11 11/15/2017 [facility] Serum or plasma lipase measurement (enzymatic activity/volume) Serum or plasma lipase measurement (enzymatic activity/volume) 15 8 - 78 11/15/2017 [facility] Serum or plasma potassium measurement (moles/volume) Serum or plasma potassium measurement (moles/volume) 4.3 3.5 - 5.1 11/15/2017 [facility] Serum or plasma protein measurement (mass/volume) Serum or plasma protein measurement (mass/volume) 7.5 6.5 - 8.1 11/15/2017 [facility] Serum or plasma sodium measurement (moles/volume) Serum or plasma sodium measurement (moles/volume) 139 136 - 145 11/15/2017 [facility] Serum or plasma total bilirubin measurement (mass/volume) Serum or plasma total bilirubin measurement (mass/volume) 1.0 0.2 - 1.2 11/15/2017 [facility] Serum or plasma troponin i.cardiac measurement by detection limit <=0.01 NG/ml (mass/volume) Serum or plasma troponin i.cardiac measurement by detection limit <=0.01 NG/ml (mass/volume) <0.001 0 - 0.300 11/15/2017 [facility] Serum or plasma urea nitrogen measurement (mass/volume) Serum or plasma urea nitrogen measurement (mass/volume) 18 7 - 26 11/15/2017 [facility] Serum or plasma urea nitrogen/creatinine mass ratio Serum or plasma urea nitrogen/creatinine mass ratio 23 6 - 25 11/15/2017 [facility] Specific gravity of Urine by Test strip Specific gravity of Urine by Test strip 1.025 1.010 - 1.025 11/15/2017 [facility] Urine clarity Urine clarity HAZY CLEAR 11/15/2017 [facility] Urine color determination Urine color determination YELLOW YELLOW 11/15/2017 [facility] Urine erythrocytes detection Urine erythrocytes detection 3+ NEGATIVE 11/15/2017 [facility] Urine glucose detection Urine glucose detection NEGATIVE NEGATIVE 11/15/2017 [facility] Urine human chorionic gonadotropin (hCG) detection Urine human chorionic gonadotropin (hCG) detection NEGATIVE NEGATIVE 11/15/2017 [facility] Urine ketones detection by automated test strip Urine ketones detection by automated test strip 3+ NEGATIVE 11/15/2017 [facility] Urine leukocyte esterase detection by dipstick Urine leukocyte esterase detection by dipstick NEGATIVE NEGATIVE 11/15/2017 [facility] Urine nitrite detection Urine nitrite detection NEGATIVE NEGATIVE 11/15/2017 [facility] Urine pH measurement by automated test strip Urine pH measurement by automated test strip 6 5 - 7 11/15/2017 [facility] Urine protein measurement by test strip (mass/volume) Urine protein measurement by test strip (mass/volume) NEGATIVE NEGATIVE 11/15/2017 [facility] Urine total bilirubin measurement (mass/volume) Urine total bilirubin measurement (mass/volume) NEGATIVE NEGATIVE 11/15/2017 [facility] Urine urobilinogen measurement by test strip (mass/volume) Urine urobilinogen measurement by test strip (mass/volume) 0.2 0.2 - 1 11/15/2017 [facility] Red Cell Distribution Width 12.2 11.7 - 14.4 11/15/2017 [facility] IM GRANULOCYTES % 0.5 0.0 - 1.0 11/15/2017 [facility] Absolute Immature Granulocyte (auto 0.07 0 - 0.1 11/15/2017 [facility] Differential Total Cells Counted 100 11/15/2017 [facility] Aspartate Amino Transf (AST/SGOT) 16 5 - 34 11/15/2017 [facility] Activated partial thromboplastin time (aPTT) in platelet poor plasma bycoagulation assay Activated partial thromboplastin time (aPTT) in platelet poor plasma bycoagulation assay 27.0 23.8 - 35.5 09/24/2017 [facility] INR in Platelet poor plasma by Coagulation assay INR in Platelet poor plasma by Coagulation assay 0.90 09/24/2017 [facility] Prothrombin time (PT) in platelet poor plasma by coagulation assay Prothrombin time (PT) in platelet poor plasma by coagulation assay 10.2 11.9 - 14.5 09/24/2017 [facility] Serum or plasma acetaminophen measurement by screening method (mass/volume) Serum or plasma acetaminophen measurement by screening method (mass/volume) <3 10 - 30 09/24/2017 [facility] Serum or plasma magnesium measurement (mass/volume) Serum or plasma magnesium measurement (mass/volume) 2.1 1.3 - 2.1 09/24/2017 [facility] Serum or plasma salicylates measurement (mass/volume) Serum or plasma salicylates measurement (mass/volume) <5.0 0 - 30 09/24/2017 [facility] Serum or plasma thyrotropin measurement by detection limit <=0.005 miu/l (units/volume) Serum or plasma thyrotropin measurement by detection limit <=0.005 miu/l (units/volume) 0.860 0.350 - 4.940 09/24/2017 [facility] B-Type Natriuretic Peptide 88.7 0 - 100 09/24/2017 [facility] Amorphous sediment detection in urine sediment by light microscopy Amorphous sediment detection in urine sediment by light microscopy MODERATE FEW 09/24/2017 [facility] Clostridium difficile A and B toxin assay Clostridium difficile A and B toxin assay NEGATIVE NEGATIVE 03/17/2017 [facility] Stool calprotectin measurement (mass/mass) Stool calprotectin measurement (mass/mass) <16 0 - 120 03/17/2017 [facility] Stool lactoferrin detection Stool lactoferrin detection NEGATIVE NEGATIVE 03/17/2017 [facility] Bacterial blood culture Bacterial blood culture Organism: STAPHYLOCOCCUS SP COAG NEG 03/16/2017 [facility] Blood culture Blood culture Growth detected. Culture workup ordered. 03/16/2017 [facility] Pathology Reports No Data Provided for [...] Date DC Date Status Source Discharged Inpatient [id number] TATYANA RAM MD 03/16/2017 03/19/2017 [facility] Departed Emergency Room [id number] SAID MUSTAFA MD 08/09/2017 08/09/2017 [facility] Discharged Inpatient [id number] TATYANA RAM MD 09/28/2017 09/28/2017 [facility] Departed Emergency Room [id number] SADI MUSTAFA MD 11/15/2017 11/15/2017 [facility] Departed Emergency Room [id number] CINDY JURADO MD 01/14/2019 01/14/2019 [facility] Departed Emergency Room [id number] CINDY JURADO MD 01/15/2019 01/15/2019 [facility] Discharged Inpatient (obs) [id number] TATYANA RAM MD 01/16/2019 01/19/2019 [facility] Procedures Procedure Code Date Perfomer Comments Source EGD with biopsy [id number] 01/18/2019 [facility] Computed tomography of abdomen and pelvis with contrast [id number] 01/14/2019 [facility] DILATION OF STOMACH, PYLORUS, ENDO [id number] 09/27/2017 [facility] EXCISION OF STOMACH, PYLORUS, ENDO, DIAGN [id number] 09/27/2017 [facility] APPLICATION LOWER LEG SPLINT [id number] 08/09/2017 [facility] EXCISION OF STOMACH, ENDO, DIAGN [id number] 03/17/2017 [facility] EXCISION OF RECTUM, ENDO, DIAGN [id number] 03/17/2017 [facility] EXCISION OF DESCENDING COLON, ENDO, DIAGN [id number] 03/17/2017 [facility] Assessment and Plan No Data Provided for This Section Plan of Care Plan of Care Date Source Discharge Date 01/19/19 11:34am Disposition HOME, SELF-CARE Instructions/Education Provided Abdominal Pain - Adult Prescriptions See Medication Section Referrals AZUL APARICIO MD (Gastroenterology) Order Date: 2 Weeks Entered Date: 01/19/2019 11:26am Address: [address] [place] [id number] Additional Instructions/Education FOLLOW-UP WITH PCP AND GI. 01/19/2019 [facility] Discharge Date 11/15/17 6:40pm Disposition HOME, SELF-CARE Condition at Discharge Stable Instructions/Education Provided Abdominal Pain - Adult Forms Provided Work/School Excuse Prescriptions See Medication Section Referrals AZUL APARICIO MD Order Date: Call for an appointment Address: [address] [place] [address] FRANCK OROZCO Order Date: Call for an appointment Address: [address] [place], [place] [id number] Additional Instructions/Education 1. follow up with gi doctor in 1-2 days without fail 2. return to ed as needed 3. increase oral fluids 11/15/2017 [facility] Social History Social History Date Source [...] Stop Date Current every day smoker 01/19/2019 [facility] Family History No Data Provided for This Section Advance Directives Order Name Results Value Date Source Advance Directives Advance Directives Directive Response Recorded Date/Time Does the patient have an advance directive? No 01/16/19 9:00pm If yes, is advance directive on file with [facility]? No 01/16/19 9:00pm If not on file with [facility] will patient provide a copy? No 01/16/19 9:00pm Do you have a Directive to Physician? No 01/16/19 6:08pm Do you have a Medical Power of Gas Treater? No 01/16/19 6:08pm Do you have an [...] rights and responsibilities? No 01/16/19 6:08pm 01/19/2019 [facility] Advance Directives Advance Directives Directive Response Recorded Date/Time Does the patient have an advance directive? No 09/24/17 1:40pm If yes, is advance directive on file with [facility]? No 09/24/17 1:40pm If not on file with [facility] will patient provide a copy? No 09/24/17 1:40pm Do you have a Directive to Physician? No 11/15/17 4:11pm Do you have a Medical Power of Gas Treater? No 11/15/17 4:11pm Do you have an [...] rights and responsibilities? Yes 11/15/17 4:11pm 11/15/2017 [facility] Functional Status No Data Provided for This Section
[2019-06-14 15:14] LABS: BILIRUBIN,URINE NEGATIVE (NEGATIVE); CLARITY,URINE CLEAR (CLEAR); COLOR,URINE YELLOW (YELLOW); LEUKOCYTE ESTERASE ,URINE NEGATIVE (NEGATIVE); NITRITE,URINE NEGATIVE (NEGATIVE); PROTEIN,URINE DIPSTICK TRACE (NEGATIVE); URINE UROBILINOGEN 0.2 mg/dL (0.2 - 1)
[2019-06-14 15:15] LABS: KETONES,URINE 2+ (NEGATIVE)
[2019-06-14 15:20] LABS: BENZODIAZEPINES SCREEN,URINE N (NEGATIVE); PHENCYCLIDINE SCREEN,URINE N (NEGATIVE)
[2019-06-14 15:26] LABS: AMPHETAMINES SCREEN,URINE NEGATIVE (NEGATIVE)
[2019-06-14 15:34] LABS: BACTERIA,URINE MODERATE /HPF; EPITHELIAL CELLS,URINE MANY /LPF
[2019-06-14 15:57] LABS: BASOPHILS % 0.3 % (0.0-1.0); EOSINOPHILS % 0.1 % (0.0-6.0); HEMATOCRIT 38.7 % (34.2-44.1); HEMOGLOBIN 13.6 g/dL (12.0-16.0); LYMPHOCYTES % 10.5 % (18.0-39.1); MEAN CORPUSCULAR HEMOGLOBIN 33.3 pg (28-32); MEAN CORPUSCULAR HGB CONC 35.1 g/dL (31-35); MEAN CORPUSCULAR VOLUME 94.9 fL (81-99); MONOCYTES # (AUTO) 0.7 (0.2-0.8); MONOCYTES % 7.6 % (4.4-11.3); NEUTROPHILS # (AUTO) 7.3 (2.1-6.9); NEUTROPHILS % 80.9 % (38.7-80.0); PLATELET COUNT 240 x10e3/uL (140-360); RED BLOOD COUNT 4.08 x10e6/uL (3.6-5.1); RED CELL DISTRIBUTION WIDTH 12.5 % (11.7-14.4)
--- NOTE | 2019-06-14 16:10 | NUR ---
PT INFORMED OF DC AND TO RECEIVE NO NARCS, PT CUSSED OUT DR CARLSON AND LEFT ROOM WALKING OUT TO PARKING LOT LEAVING. IV LOCK STILL IN PLACE. [employer] CALLED FOR WELL CHECK
[2019-06-14 16:12] LABS: ALANINE AMINOTRANSFERASE 13 IU/L (0-55); ALBUMIN 3.7 g/dL (3.5-5.0); ALBUMIN/GLOBULIN RATIO 1.5 (0.8-2.0); ALKALINE PHOSPHATASE 59 IU/L (40-150); ANION GAP 12.4 mmol/L (8-16); BLOOD UREA NITROGEN 7 mg/dL (7-26); BUN/CREATININE RATIO 10 (6-25); CALCIUM 8.9 mg/dL (8.4-10.2); CARBON DIOXIDE 23 mmol/L (22-29); CHLORIDE 105 mmol/L (98-107); EST GLOMERULAR FILTRATION RATE > 60 ML/MIN (60-); GLUCOSE 127 mg/dL (74-118); POTASSIUM 3.4 mmol/L (3.5-5.1); SODIUM 137 mmol/L (136-145)
[2019-06-14] MEDS ORDERED: CARAFATE1 GM PO (16:59)
[2019-06-14] MEDS ORDERED: ONDANSETRON ODT8 MG PO (16:59)
[2019-06-14] MEDS ORDERED: PROTONIX40 MG PO (16:59)
== END 2019-06-14 16:11 | disposition home or self-care (01) ==
LOC: ER 13:42
DX: R11.2 Nausea with vomiting, unspecified (principal); R10.13 Epigastric pain; R10.12 Left upper quadrant pain; K29.00 Acute gastritis without bleeding; F12.90 Cannabis use, unspecified, uncomplicated
CPT/HCPCS: 36415; 80053; 80307; 81001; 85025; 99284

== ENCOUNTER 2019-06-14 16:33 | Emergency (ER) | payer BC ==
[~2019-06-14] VITALS: Ht 175.3 cm; Wt 74.8 kg
--- OUTSIDE RECORDS SUMMARY | 2019-06-14 16:37 | XMS REPORT | Continuity of Care Document ---
Author Author Treasure Data Address Unknown Phone Unavailable Care Team Providers Care [facility] Polisher Name [facility] [place] Unavailable Unavailable Problems Problem Status Onset Date Classification Date Reported Comments Source Abdominal pain Active Problem 01/19/2019 [facility] Colitis Active Problem 01/19/2019 [facility] Gastritis Active Problem 01/19/2019 [facility] Sprain of left ankle Active Problem 01/19/2019 [facility] Vomiting Active Problem 01/19/2019 [facility] Medications Medication Details Route Status Patient Instructions Ordering Provider Order Date Source Sucralfate 1 Gm Tablet Before Meals And At Bedtime Active [place] 01/19/2019 [facility] Pantoprazole Sodium (Protonix) 40 Mg Tablet. Twice A Day Active [place] 03/19/2017 [facility] Ciprofloxacin Hcl (Cipro) 500 Mg Tablet, 500 Mg Oral Daily Active 03/19/2017 [facility] Dicyclomine Hcl (Bentyl) 10 Mg Capsule, 10 Mg Oral Three Times A Day Active [place] 03/19/2017 [facility] Metronidazole (Flagyl) 250 Mg Tablet, 500 Mg Oral Every 8 Hours Active 03/19/2017 [facility] Promethazine Hcl (Phenergan Supp*) 25 Mg Supp, 1 Supp Rectal Every 8 Hours as needed for Vomiting Active 03/19/2017 [facility] Pantoprazole Sodium (Protonix) 40 Mg Tablet. Twice A Day Active [place] 03/19/2017 [facility] Ciprofloxacin Hcl (Cipro) 500 Mg Tablet, 500 Mg Oral Daily Active 03/19/2017 [facility] Dicyclomine Hcl (Bentyl) 10 Mg Capsule, 10 Mg Oral Three Times A Day Active [place] 03/19/2017 [facility] Metronidazole (Flagyl) 250 Mg Tablet, 500 Mg Oral Every 8 Hours Active 03/19/2017 [facility] Promethazine Hcl (Phenergan Supp*) 25 Mg Supp, 1 Supp Rectal Every 8 Hours as needed for Vomiting Active 03/19/2017 [facility] Amphet Asp/Amphet/D-Amphet (Adderall Xr 30 Mg Capsule) 30 Mg Cap.er.24h, 30 Mg Oral Twice A Day Active 03/16/2017 [facility] Naproxen 500 Mg Tablet., 500 Mg Oral Twice A Day Active 03/16/2017 [facility] Amphet Asp/Amphet/D-Amphet (Adderall Xr 30 Mg Capsule) 30 Mg Cap.er.24h, 30 Mg Oral Twice A Day Active 03/16/2017 [facility] Naproxen 500 Mg Tablet., 500 Mg Oral Twice A Day Active 03/16/2017 [facility] Amphet Asp/Amphet/D-Amphet (Adderall 30 Mg Tablet) 30 Mg Tablet Daily Active [facility] Ondansetron (Zofran Odt) 4 Mg Tab.rapdis Every 6 Hours as needed for Vomiting Active [facility] Amphet Asp/Amphet/D-Amphet (Adderall 30 Mg Tablet) 30 Mg Tablet Daily Active [facility] Ondansetron (Zofran Odt) 4 Mg Tab.rapdis Every 6 Hours as needed for Vomiting Active [facility] Allergies, Adverse Reactions, Alerts Substance Category Reaction Severity Reaction type Status Date Reported Comments Source STRAWBERRIES RED SPOTS Mild Allergy to Substance Active 11/16/2013 [facility] Immunizations No Data Provided for This Section Results Order Name Results Value Reference Range Date Interpretation Comments Source Blood leukocytes automated count (number/volume) 8.87 4.8 - 10.8 01/17/2019 [facility] Blood erythrocytes automated count (number/volume) 4.35 3.6 - 5.1 01/17/2019 [facility] Blood hemoglobin measurement (moles/volume) 14.3 12.0 - 16.0 01/17/2019 [facility] Automated blood hematocrit (volume fraction) 41.3 34.2 - 44.1 01/17/2019 [facility] Automated erythrocyte mean corpuscular volume 94.9 81 - 99 01/17/2019 [facility] Automated erythrocyte mean corpuscular hemoglobin (mass per erythrocyte) 32.9 28 - 32 01/17/2019 [facility] Automated erythrocyte mean corpuscular hemoglobin concentration measurement (mass/volume) 34.6 31 - 35 01/17/2019 [facility] RDW BldCo-Rto 12.3 11.7 - 14.4 01/17/2019 [facility] Automated blood platelet count (count/volume) 248 140 - 360 01/17/2019 [facility] Automated blood segmented neutrophil count as percentage of total leukocytes 66.1 38.7 - 80.0 01/17/2019 [facility] Automated blood lymphocyte count as percentage ot total leukocytes 24.2 18.0 - 39.1 01/17/2019 [facility] Automated blood monocyte count as percentage of total leukocytes 9.0 4.4 - 11.3 01/17/2019 [facility] Automated blood eosinophil count as percentage of total leukocytes 0.1 0.0 - 6.0 01/17/2019 [facility] Automated blood basophil count as percentage of total leukocytes 0.3 0.0 - 1.0 01/17/2019 [facility] IM GRANULOCYTES % 0.3 0.0 - 1.0 01/17/2019 [facility] Automated blood neutrophil count 5.9 2.1 - 6.9 01/17/2019 [facility] Blood lymphocytes count (number/volume) 2.2 1.0 - 3.2 01/17/2019 [facility] Blood monocytes automated count (number/volume) 0.8 0.2 - 0.8 01/17/2019 [facility] Automated blood eosinophil count 0.0 0.0 - 0.4 01/17/2019 [facility] Automated blood basophil count (count/volume) 0.0 0.0 - 0.1 01/17/2019 [facility] Absolute Immature Granulocyte (auto 0.03 0 - 0.1 01/17/2019 [facility] Serum or plasma sodium measurement (moles/volume) 138 136 - 145 01/17/2019 [facility] Serum or plasma potassium measurement (moles/volume) 3.7 3.5 - 5.1 01/17/2019 [facility] Serum or plasma chloride measurement (moles/volume) 109 98 - 107 01/17/2019 [facility] Serum or plasma carbon dioxide, total measurement (moles/volume) 23 22 - 29 01/17/2019 [facility] Serum or plasma anion gap 9.7 8 - 16 01/17/2019 [facility] Serum or plasma urea nitrogen measurement (mass/volume) 11 7 - 26 01/17/2019 [facility] Serum or plasma creatinine measurement (mass/volume) 0.67 0.57 - 1.11 01/17/2019 [facility] Serum or plasma urea nitrogen/creatinine mass ratio 16 6 - 25 01/17/2019 [facility] Estimated glomerular filtration rate (GFR) determination > 60 60 01/17/2019 [facility] Glucose measurement 103 74 - 118 01/17/2019 [facility] Serum or plasma calcium measurement (mass/volume) 8.5 8.4 - 10.2 01/17/2019 [facility] Serum or plasma total bilirubin measurement (mass/volume) 0.8 0.2 - 1.2 01/17/2019 [facility] Aspartate Amino Transf (AST/SGOT) 11 5 - 34 01/17/2019 [facility] Serum or plasma alanine aminotransferase measurement (enzymatic activity/volume) 9 0 - 55 01/17/2019 [facility] Serum or plasma protein measurement (mass/volume) 5.9 6.5 - 8.1 01/17/2019 [facility] Serum or plasma albumin measurement (mass/volume) 3.2 3.5 - 5.0 01/17/2019 [facility] Plasma globulin measurement (mass/volume) 2.7 2.3 - 3.5 01/17/2019 [facility] Serum or plasma albumin/globulin mass ratio 1.2 0.8 - 2.0 01/17/2019 [facility] Serum or plasma alkaline phosphatase measurement (enzymatic activity/volume) 56 40 - 150 01/17/2019 [facility] Serum or plasma amylase measurement (enzymatic activity/volume) 68 25 - 125 01/16/2019 [facility] Serum or plasma lipase measurement (enzymatic activity/volume) 33 8 - 78 01/16/2019 [facility] Urine color determination YELLOW YELLOW 01/16/2019 [facility] Urine clarity CLOUDY CLEAR 01/16/2019 [facility] Specific gravity of Urine by Test strip 1.020 1.010 - 1.025 01/16/2019 [facility] Urine pH measurement by automated test strip 7 5 - 7 01/16/2019 [facility] Urine leukocyte esterase detection by dipstick TRACE NEGATIVE 01/16/2019 [facility] Urine nitrite detection NEGATIVE NEGATIVE 01/16/2019 [facility] Urine protein measurement by test strip (mass/volume) 2+ NEGATIVE 01/16/2019 [facility] Urine glucose detection NEGATIVE NEGATIVE 01/16/2019 [facility] Urine ketones detection by automated test strip 3+ NEGATIVE 01/16/2019 [facility] Urine urobilinogen measurement by test strip (mass/volume) 1 0.2 - 1 01/16/2019 [facility] Urine total bilirubin measurement (mass/volume) 1+ NEGATIVE 01/16/2019 [facility] Urine erythrocytes detection NEGATIVE NEGATIVE 01/16/2019 [facility] Automated urine sediment leukocyte count by microscopy (number/high power field) 0-5 0 - 5 01/16/2019 [facility] Erythrocytes detection in urine sediment by light microscopy NONE 0 - 5 01/16/2019 [facility] Bacteria detection in urine sediment by light microscopy RARE NONE 01/16/2019 [facility] Epithelial cells detection in urine sediment by light microscopy MANY NONE 01/16/2019 [facility] Calcium oxalate crystals detection in urine sediment by light microscopy MODERATE FEW 01/16/2019 [facility] Prothrombin time (PT) in platelet poor plasma by coagulation assay 12.6 11.9 - 14.5 01/14/2019 [facility] INR in Platelet poor plasma by Coagulation assay 0.90 01/14/2019 [facility] Activated partial thromboplastin time (aPTT) in platelet poor plasma bycoagulation assay 24.1 23.8 - 35.5 01/14/2019 [facility] Urine opiates screening test NEGATIVE NEGATIVE 01/14/2019 [facility] Barbiturates screen, urine NEGATIVE NEGATIVE 01/14/2019 [facility] Urine phencyclidine detection by screening method NEGATIVE NEGATIVE 01/14/2019 [facility] Urine amphetamines detection by screen method > 1000 ng/mL POSITIVE NEGATIVE 01/14/2019 [facility] Urine Methamphetamines Screen NEGATIVE NEGATIVE 01/14/2019 [facility] Urine benzodiazepines detection by screening method NEGATIVE NEGATIVE 01/14/2019 [facility] Urine cocaine measurement (mass/volume) POSITIVE NEGATIVE 01/14/2019 [facility] Urine cannabinoids detection by screening method POSITIVE NEGATIVE 01/14/2019 [facility] Urine methadone screen NEGATIVE NEGATIVE 01/14/2019 [facility] Amorphous sediment detection in urine sediment by light microscopy MODERATE FEW 01/14/2019 [facility] Urine human chorionic gonadotropin (hCG) detection NEGATIVE NEGATIVE 01/14/2019 [facility] Serum or plasma magnesium measurement (mass/volume) 2.2 1.3 - 2.1 01/14/2019 [facility] Serum or plasma creatine kinase measurement (enzymatic activity/volume) 86 29 - 168 01/14/2019 [facility] Serum or plasma creatine kinase MB measurement (mass/volume) 3.00 0 - 5.0 01/14/2019 [facility] Troponin I measurement by highly sensitive enzyme immunoassay 0.004 0 - 0.300 01/14/2019 [facility] Serum or plasma acetaminophen measurement by screening method (mass/volume) < 3 10 - 30 01/14/2019 [facility] Serum or plasma ethanol measurement (mass/volume) < 10.0 0.0 - 10.0 01/14/2019 [facility] Automated blood basophil count (count/volume) Automated blood basophil count (count/volume) 0.0 0.0 - 0.1 11/15/2017 [facility] Automated blood basophil count as percentage of total leukocytes Automated blood basophil count as percentage of total leukocytes 0.1 0.0 - 1.0 11/15/2017 [facility] Automated blood eosinophil count Automated blood eosinophil count 0.0 0.0 - 0.4 11/15/2017 [facility] Automated blood eosinophil count as percentage of total leukocytes Automated blood eosinophil count as percentage of total leukocytes 0.0 0.0 - 6.0 11/15/2017 [facility] Automated blood hematocrit (volume fraction) Automated blood hematocrit (volume fraction) 43.1 34.2 - 44.1 11/15/2017 [facility] Automated blood lymphocyte count as percentage ot total leukocytes Automated blood lymphocyte count as percentage ot total leukocytes 1.7 18.0 - 39.1 11/15/2017 [facility] Automated blood monocyte count as percentage of total leukocytes Automated blood monocyte count as percentage of total leukocytes 1.9 4.4 - 11.3 11/15/2017 [facility] Automated blood neutrophil count Automated blood neutrophil count 14.8 2.1 - 6.9 11/15/2017 [facility] Automated blood platelet count (count/volume) Automated blood platelet count (count/volume) 286 140 - 360 11/15/2017 [facility] Automated blood segmented neutrophil count as percentage of total leukocytes Automated blood segmented neutrophil count as percentage of total leukocytes 95.8 38.7 - 80.0 11/15/2017 [facility] Automated erythrocyte mean corpuscular hemoglobin (mass per erythrocyte) Automated erythrocyte mean corpuscular hemoglobin (mass per erythrocyte) 33.6 28 - 32 11/15/2017 [facility] Automated erythrocyte mean corpuscular hemoglobin concentration measurement (mass/volume) Automated erythrocyte mean corpuscular hemoglobin concentration measurement (mass/volume) 35.0 31 - 35 11/15/2017 [facility] Automated erythrocyte mean corpuscular volume Automated erythrocyte mean corpuscular volume 96.0 81 - 99 11/15/2017 [facility] Automated urine sediment leukocyte count by microscopy (number/high power field) Automated urine sediment leukocyte count by microscopy (number/high power field) <5 0 - 5 11/15/2017 [facility] Bacteria detection in urine sediment by light microscopy Bacteria detection in urine sediment by light microscopy NONE NONE 11/15/2017 [facility] Blood erythrocytes automated count (number/volume) Blood erythrocytes automated count (number/volume) 4.49 3.6 - 5.1 11/15/2017 [facility] Blood hemoglobin measurement (moles/volume) Blood hemoglobin measurement (moles/volume) 15.1 12.0 - 16.0 11/15/2017 [facility] Blood leukocytes automated count (number/volume) Blood leukocytes automated count (number/volume) 15.49 4.8 - 10.8 11/15/2017 [facility] Blood lymphocytes count (number/volume) Blood lymphocytes count (number/volume) 0.3 1.0 - 3.2 11/15/2017 [facility] Blood monocytes automated count (number/volume) Blood monocytes automated count (number/volume) 0.3 0.2 - 0.8 11/15/2017 [facility] Blood platelets count by estimate (number/volume) Blood platelets count by estimate (number/volume) ADEQUATE 11/15/2017 [facility] Epithelial cells detection in urine sediment by light microscopy Epithelial cells detection in urine sediment by light microscopy MODERATE NONE 11/15/2017 [facility] Erythrocytes detection in urine sediment by light microscopy Erythrocytes detection in urine sediment by light microscopy NONE 0 - 5 11/15/2017 [facility] Estimated glomerular filtration rate (GFR) determination Estimated glomerular filtration rate (GFR) determination >60 60 11/15/2017 [facility] Glucose measurement Glucose measurement 171 74 - 118 11/15/2017 [facility] Manual blood lymphocytes/100 leukocytes Manual blood lymphocytes/100 leukocytes 5 19 - 48 11/15/2017 [facility] Manual blood monocytes/100 leukocytes Manual blood monocytes/100 leukocytes 3 3.4 - 9.0 11/15/2017 [facility] Manual blood neutrophils/100 leukocytes Manual blood neutrophils/100 leukocytes 92 40 - 74 11/15/2017 [facility] Plasma globulin measurement (mass/volume) Plasma globulin measurement (mass/volume) 3.2 2.3 - 3.5 11/15/2017 [facility] Platelet morphology Platelet morphology NORMAL 11/15/2017 [facility] RBC morphology RBC morphology NORMAL 11/15/2017 [facility] Serum or plasma alanine aminotransferase measurement (enzymatic activity/volume) Serum or plasma alanine aminotransferase measurement (enzymatic activity/volume) 18 0 - 55 11/15/2017 [facility] Serum or plasma albumin measurement (mass/volume) Serum or plasma albumin measurement (mass/volume) 4.3 3.5 - 5.0 11/15/2017 [facility] Serum or plasma albumin/globulin mass ratio Serum or plasma albumin/globulin mass ratio 1.3 0.8 - 2.0 11/15/2017 [facility] Serum or plasma alkaline phosphatase measurement (enzymatic activity/volume) Serum or plasma alkaline phosphatase measurement (enzymatic activity/volume) 72 40 - 150 11/15/2017 [facility] Serum or plasma amylase measurement (enzymatic activity/volume) Serum or plasma amylase measurement (enzymatic activity/volume) 42 25 - 125 11/15/2017 [facility] Serum or plasma anion gap Serum or plasma anion gap 14.3 8 - 16 11/15/2017 [facility] Serum or plasma calcium measurement (mass/volume) Serum or plasma calcium measurement (mass/volume) 9.1 8.4 - 10.2 11/15/2017 [facility] Serum or plasma carbon dioxide, total measurement (moles/volume) Serum or plasma carbon dioxide, total measurement (moles/volume) 22 22 - 29 11/15/2017 [facility] Serum or plasma chloride measurement (moles/volume) Serum or plasma chloride measurement (moles/volume) 107 98 - 107 11/15/2017 [facility] Serum or plasma choriogonadotropin ( test) detection Serum or plasma choriogonadotropin ( test) detection NEGATIVE NEGATIVE 11/15/2017 [facility] Serum or plasma creatine kinase MB measurement (mass/volume) Serum or plasma creatine kinase MB measurement (mass/volume) 2.20 0.00 - 5.00 11/15/2017 [facility] Serum or plasma creatine kinase measurement (enzymatic activity/volume) Serum or plasma creatine kinase measurement (enzymatic activity/volume) 80 29 - 168 11/15/2017 [facility] Serum or plasma creatinine measurement (mass/volume) Serum or plasma creatinine measurement (mass/volume) 0.79 0.57 - 1.11 11/15/2017 [facility] Serum or plasma lipase measurement (enzymatic activity/volume) Serum or plasma lipase measurement (enzymatic activity/volume) 15 8 - 78 11/15/2017 [facility] Serum or plasma potassium measurement (moles/volume) Serum or plasma potassium measurement (moles/volume) 4.3 3.5 - 5.1 11/15/2017 [facility] Serum or plasma protein measurement (mass/volume) Serum or plasma protein measurement (mass/volume) 7.5 6.5 - 8.1 11/15/2017 [facility] Serum or plasma sodium measurement (moles/volume) Serum or plasma sodium measurement (moles/volume) 139 136 - 145 11/15/2017 [facility] Serum or plasma total bilirubin measurement (mass/volume) Serum or plasma total bilirubin measurement (mass/volume) 1.0 0.2 - 1.2 11/15/2017 [facility] Serum or plasma troponin i.cardiac measurement by detection limit <=0.01 NG/ml (mass/volume) Serum or plasma troponin i.cardiac measurement by detection limit <=0.01 NG/ml (mass/volume) <0.001 0 - 0.300 11/15/2017 [facility] Serum or plasma urea nitrogen measurement (mass/volume) Serum or plasma urea nitrogen measurement (mass/volume) 18 7 - 26 11/15/2017 [facility] Serum or plasma urea nitrogen/creatinine mass ratio Serum or plasma urea nitrogen/creatinine mass ratio 23 6 - 25 11/15/2017 [facility] Specific gravity of Urine by Test strip Specific gravity of Urine by Test strip 1.025 1.010 - 1.025 11/15/2017 [facility] Urine clarity Urine clarity HAZY CLEAR 11/15/2017 [facility] Urine color determination Urine color determination YELLOW YELLOW 11/15/2017 [facility] Urine erythrocytes detection Urine erythrocytes detection 3+ NEGATIVE 11/15/2017 [facility] Urine glucose detection Urine glucose detection NEGATIVE NEGATIVE 11/15/2017 [facility] Urine human chorionic gonadotropin (hCG) detection Urine human chorionic gonadotropin (hCG) detection NEGATIVE NEGATIVE 11/15/2017 [facility] Urine ketones detection by automated test strip Urine ketones detection by automated test strip 3+ NEGATIVE 11/15/2017 [facility] Urine leukocyte esterase detection by dipstick Urine leukocyte esterase detection by dipstick NEGATIVE NEGATIVE 11/15/2017 [facility] Urine nitrite detection Urine nitrite detection NEGATIVE NEGATIVE 11/15/2017 [facility] Urine pH measurement by automated test strip Urine pH measurement by automated test strip 6 5 - 7 11/15/2017 [facility] Urine protein measurement by test strip (mass/volume) Urine protein measurement by test strip (mass/volume) NEGATIVE NEGATIVE 11/15/2017 [facility] Urine total bilirubin measurement (mass/volume) Urine total bilirubin measurement (mass/volume) NEGATIVE NEGATIVE 11/15/2017 [facility] Urine urobilinogen measurement by test strip (mass/volume) Urine urobilinogen measurement by test strip (mass/volume) 0.2 0.2 - 1 11/15/2017 [facility] Red Cell Distribution Width 12.2 11.7 - 14.4 11/15/2017 [facility] IM GRANULOCYTES % 0.5 0.0 - 1.0 11/15/2017 [facility] Absolute Immature Granulocyte (auto 0.07 0 - 0.1 11/15/2017 [facility] Differential Total Cells Counted 100 11/15/2017 [facility] Aspartate Amino Transf (AST/SGOT) 16 5 - 34 11/15/2017 [facility] Activated partial thromboplastin time (aPTT) in platelet poor plasma bycoagulation assay Activated partial thromboplastin time (aPTT) in platelet poor plasma bycoagulation assay 27.0 23.8 - 35.5 09/24/2017 [facility] INR in Platelet poor plasma by Coagulation assay INR in Platelet poor plasma by Coagulation assay 0.90 09/24/2017 [facility] Prothrombin time (PT) in platelet poor plasma by coagulation assay Prothrombin time (PT) in platelet poor plasma by coagulation assay 10.2 11.9 - 14.5 09/24/2017 [facility] Serum or plasma acetaminophen measurement by screening method (mass/volume) Serum or plasma acetaminophen measurement by screening method (mass/volume) <3 10 - 30 09/24/2017 [facility] Serum or plasma magnesium measurement (mass/volume) Serum or plasma magnesium measurement (mass/volume) 2.1 1.3 - 2.1 09/24/2017 [facility] Serum or plasma salicylates measurement (mass/volume) Serum or plasma salicylates measurement (mass/volume) <5.0 0 - 30 09/24/2017 [facility] Serum or plasma thyrotropin measurement by detection limit <=0.005 miu/l (units/volume) Serum or plasma thyrotropin measurement by detection limit <=0.005 miu/l (units/volume) 0.860 0.350 - 4.940 09/24/2017 [facility] B-Type Natriuretic Peptide 88.7 0 - 100 09/24/2017 [facility] Amorphous sediment detection in urine sediment by light microscopy Amorphous sediment detection in urine sediment by light microscopy MODERATE FEW 09/24/2017 [facility] Clostridium difficile A and B toxin assay Clostridium difficile A and B toxin assay NEGATIVE NEGATIVE 03/17/2017 [facility] Stool calprotectin measurement (mass/mass) Stool calprotectin measurement (mass/mass) <16 0 - 120 03/17/2017 [facility] Stool lactoferrin detection Stool lactoferrin detection NEGATIVE NEGATIVE 03/17/2017 [facility] Bacterial blood culture Bacterial blood culture Organism: STAPHYLOCOCCUS SP COAG NEG 03/16/2017 [facility] Blood culture Blood culture Growth detected. Culture workup ordered. 03/16/2017 [facility] Pathology Reports No Data Provided for [...] Date DC Date Status Source Discharged Inpatient [id number] TATYANA RAM MD 03/16/2017 03/19/2017 [facility] Departed Emergency Room [id number] SADI MUSTAFA MD 08/09/2017 08/09/2017 [facility] Discharged Inpatient [id number] TATYANA RAM MD 09/28/2017 09/28/2017 [facility] Departed Emergency Room [id number] SADI MUSTAFA MD 11/15/2017 11/15/2017 [facility] Departed Emergency Room [id number] CINDY JURADO MD 01/14/2019 01/14/2019 [facility] Departed Emergency Room [id number] CINDY JURADO MD 01/15/2019 01/15/2019 [facility] Discharged Inpatient (obs) [id number] TATYANA RAM MD 01/16/2019 01/19/2019 [facility] Procedures Procedure Code Date Perfomer Comments Source EGD with biopsy [id number] 01/18/2019 [facility] Computed tomography of abdomen and pelvis with contrast [id number] 01/14/2019 [facility] DILATION OF STOMACH, PYLORUS, ENDO [id number] 09/27/2017 [facility] EXCISION OF STOMACH, PYLORUS, ENDO, DIAGN [id number] 09/27/2017 [facility] APPLICATION LOWER LEG SPLINT [id number] 08/09/2017 [facility] EXCISION OF STOMACH, ENDO, DIAGN [id number] 03/17/2017 [facility] EXCISION OF RECTUM, ENDO, DIAGN [id number] 03/17/2017 [facility] EXCISION OF DESCENDING COLON, ENDO, DIAGN [id number] 03/17/2017 [facility] Assessment and Plan No Data Provided for This Section Plan of Care Plan of Care Date Source Discharge Date 01/19/19 11:34am Disposition HOME, SELF-CARE Instructions/Education Provided Abdominal Pain - Adult Prescriptions See Medication Section Referrals AZUL APARICIO MD (Gastroenterology) Order Date: 2 Weeks Entered Date: 01/19/2019 11:26am Address: [address] [place] [id number] Additional Instructions/Education FOLLOW-UP WITH PCP AND GI. 01/19/2019 [facility] Discharge Date 11/15/17 6:40pm Disposition HOME, SELF-CARE Condition at Discharge Stable Instructions/Education Provided Abdominal Pain - Adult Forms Provided Work/School Excuse Prescriptions See Medication Section Referrals AZUL APARICIO MD Order Date: Call for an appointment Address: [address] [facility] [address] [place] [address] FRANCK OROZCO Order Date: Call for an appointment Address: [address] [place], [place] [id number] Additional Instructions/Education 1. follow up with gi doctor in 1-2 days without fail 2. return to ed as needed 3. increase oral fluids 11/15/2017 [facility] Social History Social History Date Source [...] Stop Date Current every day smoker 01/19/2019 [facility] Family History No Data Provided for This Section Advance Directives Order Name Results Value Date Source Advance Directives Advance Directives Directive Response Recorded Date/Time Does the patient have an advance directive? No 01/16/19 9:00pm If yes, is advance directive on file with [facility]? No 01/16/19 9:00pm If not on file with [facility] will patient provide a copy? No 01/16/19 9:00pm Do you have a Directive to Physician? No 01/16/19 6:08pm Do you have a Medical Power of Heavy Repairer? No 01/16/19 6:08pm Do you have an [...] rights and responsibilities? No 01/16/19 6:08pm 01/19/2019 [facility] Advance Directives Advance Directives Directive Response Recorded Date/Time Does the patient have an advance directive? No 09/24/17 1:40pm If yes, is advance directive on file with [facility]? No 09/24/17 1:40pm If not on file with [facility] will patient provide a copy? No 09/24/17 1:40pm Do you have a Directive to Physician? No 11/15/17 4:11pm Do you have a Medical Power of Heavy Repairer? No 11/15/17 4:11pm Do you have an [...] rights and responsibilities? Yes 11/15/17 4:11pm 11/15/2017 [facility] Functional Status No Data Provided for This Section
[2019-06-14] MEDS ORDERED: PROMETHAZINE HCL (IM) 25 MG/ML VIAL ONE (16:57)
[2019-06-14] MEDS ORDERED: SODIUM CHLORIDE 0.9% 1000ML 1,000 ML ONE (16:58)
[2019-06-14] MEDS ORDERED: ONDANSETRON ODT8 MG PO (16:59)
[2019-06-14] MEDS ORDERED: CARAFATE1 GM PO (16:59)
[2019-06-14] MEDS ORDERED: PROTONIX40 MG PO (16:59)
[2019-06-14] MEDS ORDERED: PROMETHAZINE 25MG/ NS 50ML (IV) IV ONE (17:00)
[2019-06-14] MEDS ORDERED: SODIUM CHLORIDE 0.9% 1000ML 1,000 ML IV SCH (17:00)
== END 2019-06-14 18:01 | disposition home or self-care (01) ==
LOC: FSED 16:33
DX: R11.2 Nausea with vomiting, unspecified (principal); R10.13 Epigastric pain; K29.00 Acute gastritis without bleeding; F17.210 Nicotine dependence, cigarettes, uncomplicated; F12.90 Cannabis use, unspecified, uncomplicated
CPT/HCPCS: 99282; J2550; J7030